=== PATIENT | female | born 1970 | race Caucasian/White ===

== ENCOUNTER 2020-03-27 06:03 | Outpatient (REF) | payer OTHER, SELFPAY ==
[2020-03-27 11:56] LABS: Alanine Aminotransferase 61 U/L (0-31); Anion Gap 15 (12-20); Aspartate Amino Transferase 36 U/L (5-31); Blood Urea Nitrogen 12 mg/dL (9-16); Calcium 9.3 mg/dL (8.4-10.2); Carbon Dioxide 26 mmol/L (22-29); Chloride 104 mmol/L (96-108); Cholesterol 157 mg/dL; Estimated Glomerular Filt Rate > 60; Glucose Fasting 96 mg/dL (60-99); HDL Cholesterol 64 mg/dL; LDL Cholesterol Calculated 80 mg/dl; Potassium 4.2 mmol/l (3.3-5.1); Sodium 141 mmol/L (135-145); Triglycerides 69 mg/dL
[2020-03-27 12:19] LABS: TSH reflex Free T4 < 0.01 mIU/mL (0.32-4.0)
[2020-03-27 13:06] LABS: Free T4 (Free Thyroxine) 2.41 ng/dL (0.71-1.85)
== END 2020-03-27 06:04 | disposition home or self-care (01) ==
LOC: HO.HMGCLDS 06:03
PROVIDERS: PCP Internal Medicine; Visit Provider Internal Medicine
DX: Z00.01 Encounter for general adult medical examination with abnormal findings (principal); I10 Essential (primary) hypertension
CPT/HCPCS: 80048; 80061; 84439; 84443; 84450; 84460

== ENCOUNTER → 2020-05-01 12:40 | Outpatient (BNVA) | payer OTHER, SELFPAY | PROVIDERS: PCP Internal Medicine; Visit Provider Physician Assistant | DX: Z76.89 Persons encountering health services in other specified circumstances (principal) ==

== ENCOUNTER → 2020-06-19 15:36 | Outpatient (BNVA) | payer OTHER, SELFPAY | PROVIDERS: PCP Internal Medicine; Referring Provider Internal Medicine; Visit Provider Internal Medicine ==

== ENCOUNTER 2020-06-19 16:46 | Emergency (ER) | payer OTHER, SELFPAY ==
[2020-06-19] VITALS (7 sets, daily range): BP systolic 113–190; BP diastolic 72–91; PULSE 90–116; RESP 16–20; TEMP 36.7; O2SAT 97–99; BMI 21.4
--- NOTE | 2020-06-19 17:12 | ED_ITS ---
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 Patient been having the symptoms for last 3 months had blood workup done at in 04/05 unable to follow up with specialist today she saw her gum scoring machine operator and at that time blood pressure was 200/120 pulse rate was 120 she was sent here for questionable thyroid storm Onset (ago): month(s) Related Data Home Medications Medication Instructions Recorded Confirmed calcium carbonate 500 mg calcium 500 mg PO BID 03/26/20 06/19/20 (1,250 mg) tablet cholecalciferol (vitamin D3) 25 25 mcg PO DAILY 03/26/20 06/19/20 mcg (1,000 unit) capsule multivitamin 1 tab PO DAILY 03/26/20 06/19/20 Previous Rx's Medication Instructions Recorded clobetasol 0.05 % topical ointment 1 applic TOPICAL DAILY 14 Days #60 03/26/20 g losartan 50 mg-hydrochlorothiazide 1 tab PO DAILY #90 tab 03/26/20 12.5 mg tablet propranolol 10 mg PO TID #90 tab 06/19/20 Allergies Allergy/AdvReac Type Severity Reaction Status Date / Time No Known Allergies Allergy Verified 06/19/20 16:24 Review of Systems Review of Systems: Constitutional : +Weight loss, No Fever, No Chills ENT/Mouth : No sore throat, No Rhinorrhea Eyes: No Eye Pain, No Swelling Cardiovascular : No Chest Pain, + palpitations Respiratory : No Cough, No Sputum, no shortness of breath Gastrointestinal : no Nausea, No Vomiting, No Diarrhea, No abdominal Pain, no black stools Genitourinary : No Dysuria, No Urinary Frequency Musculoskeletal : No joint pain, No Myalgias, No Joint Swelling Skin : No Skin Lesions, No rash Neuro : No Weakness, No Numbness, No Dizziness, No Headache Psych : No Anxiety/Panic, No Depression Heme/Lymph: No Bruising, No Lymphadenopathy Endocrine : No Polyuria, No Polydipsia All other systems reviewed and are negative PMFSH Past Medical History Medical History Annual visit for general adult medical examination with abnormal findings Colon cancer screening Elevated serum free T4 level Essential hypertension Granuloma annulare Hyperthyroidism Low thyroid stimulating hormone (TSH) level Surgical History No pertinent past surgical history Family History Family History Father Arthritis Thyroid disease Psoriasis Mother Viral cardiomyopathy Brother Coronary artery disease Paternal Grandmother Lung cancer Maternal Uncle Lung cancer Sister No problems noted. Paternal Uncle Lung cancer Son No problems noted. Daughter No problems noted. Social History Social History Alcohol intake: current Smoking Status: Former smoker Advance Directives: No Advance Directives Information Provided: No Physical Exam Vital Signs: Vital Signs: Last Vital Signs Temp 98.1 F 06/19/20 17:11 Pulse 94 06/19/20 20:35 Resp 20 06/19/20 20:35 BP 115/75 06/19/20 20:35 Pulse Ox 97 06/19/20 19:50 Body Mass Index 21.4 Const: General: cooperative, healthy appearing, comfortable and no acute distress Nutritional Appearance: thin Orientation/consciousness: patient oriented x3 HENMT: Head: Yes normocephalic Ears: hearing grossly normal bilaterally General nose exam: Normal external nose present Mouth: Normal oral and palatal mucosa present Eyes: General: appearance normal, both eyes and all related structures Neck: Neck: Yes normal visual inspection Thyroid: Thyroid normal Chest: Chest palpation & inspection: normal inspection of the chest Resp: Effort & Inspection: normal respiratory effort Auscultation: clear to auscultation bilaterally, no crackles, no rales and no rhonchi Cardio: Jugular venous distension: no JVD Palpation: normal PMI Rate: tachycardic Rhythm: regular rhythm Heart sounds: S1 normal heart sound present and S2 normal heart sound present Peripheral pulses: Peripheral pulses 2+ throughout GI: Inspection: Yes normal to inspection Palpation (GI): Soft to palpation, nontender, no guarding and No hepatosplenomegaly present Auscultation: normal bowel sounds : General: Yes no CVA tenderness Back/Spine/Pelvis: Back: no CVA tenderness Thoracic/Lumbar Spine: thoracic and lumbar spine normal to inspection Skin: General skin exam: no rashes or lesions noted Neuro: General: patient oriented x3 and no focal motor deficits Extrem: General: Yes normal to inspection, Yes no calf tenderness and No pedal edema Psych: Appearance: grossly normal Course Course Course Narrative: Patient feeling much better heart rate around 90. Will discharge patient home on propranolol 10 mg 3 times a day advised to follow-up with her gum scoring machine operator tomorrow Medical Decision Making Lab Data Result diagrams: 06/19/20 17:16 06/19/20 17:16 Labs: Lab Results 06/19/20 06/19/20 Range/Units 17:16 17:16 WBC 5.2 (4.8-10.8) X10*3/uL RBC 4.40 (4.20-5.50) X10*6/uL Hgb 13.3 (12.0-16.0) g/dl Hct 37.6 (37-47) % MCV 85.5 (80-98) fL MCH 30.2 (27.0-33.0) pg MCHC 35.4 H (31.0-35.0) g/dl RDW 13.7 (11.0-16.0) % Plt Count 246 (160-400) X10*3/uL MPV 9.6 (9.4-12.3) fL Immature Gran % (Auto) 0.2 (0.0-0.4) % Neut % (Auto) 51.7 (45-73) % Lymph % (Auto) 35.7 (20-40) % Ida % (Auto) 10.8 (2-11) % Eos % (Auto) 1.4 (0-4) % Baso % (Auto) 0.2 (0-2) % Lymph # (Auto) 1.9 (1.2-4.9) X10*3/uL Ida # (Auto) 0.6 (0.1-1.2) X10*3/uL Eos # (Auto) 0.1 (0.0-0.4) X10*3/uL Baso # (Auto) 0.0 (0.0-0.2) X10*3/uL Abs Immat Gran (auto) 0.01 (0.00-0.03) X10*3/uL Absolute Neuts (auto) 2.7 (2.0-8.3) X10*3/uL Absolute Nucleated RBC 0.000 (0.0-0.012) X10*3/uL Nucleated RBC % (auto) 0.0 (0.0-0.2) /100WBC Sodium 137 (135-145) mmol/L Potassium 3.5 (3.3-5.1) mmol/L Chloride 101 (96-108) mmol/L Carbon Dioxide 25 (22-29) mmol/L Anion Gap 15 (12-20) BUN 16 (9-16) mg/dL Creatinine 0.59 (0.5-1.4) mg/dL Estim Creat Clear Calc 113.7 Estimated GFR > 60 Random Glucose 107 (60-115) mg/dL Calcium 9.4 (8.4-10.2) mg/dL TSH < 0.01 L (0.32-4.0) uIU/mL Free T4 3.08 H (0.71-1.85) ng/dL Discharge Plan Discharge Clinical Impression: Hyperthyroidism Patient Disposition: Home, Self-Care Instructions: Hyperthyroidism (ED) Additional Instructions: Take medication as prescribed and follow-up with your gum scoring machine operator tomorrow Prescriptions: New propranolol 10 mg tablet 10 mg PO TID Qty: 90 RF: 0 No Action calcium carbonate [Calcium 500] 500 mg calcium (1,250 mg) tablet 500 mg PO BID RF: 0 cholecalciferol (vitamin D3) 25 mcg (1,000 unit) capsule 25 mcg PO DAILY RF: 0 multivitamin Tablet 1 tab PO DAILY RF: 0 losartan-hydrochlorothiazide 50-12.5 mg tablet 1 tab PO DAILY Qty: 90 RF: 3 clobetasol 0.05 % ointment 1 applic topical DAILY 14 Days Qty: 60 RF: 1 Interventions: ED Discharge Assessment Last Done: 06/19/20 21:00 Discharge Date/Time: 06/19/20 21:01
[2020-06-19] MEDS: Metoprolol Tartrate 5 MG/5 ML VIAL IVPUSH (17:24)
[2020-06-19 17:26] LABS: MANUAL DIFF FLAG NO
[2020-06-19 17:31] LABS: Basophils Percent Auto 0.2 % (0-2); Eosinophils Absolute Auto 0.1 X10*3/uL (0.0-0.4); Eosinophils Percent Auto 1.4 % (0-4); Hematocrit 37.6 % (37-47); Hemoglobin 13.3 g/dl (12.0-16.0); Imm Gran Abs Auto 0.01 X10*3/uL (0.00-0.03); Imm Gran Pct Auto 0.2 % (0.0-0.4); Lymphocytes Absolute Auto 1.9 X10*3/uL (1.2-4.9); Lymphocytes Percent Auto 35.7 % (20-40); Mean Corpuscular HGB Conc 35.4 g/dl (31.0-35.0); Mean Corpuscular Hemoglobin 30.2 pg (27.0-33.0); Mean Corpuscular Volume 85.5 fL (80-98); Mean Platelet Volume 9.6 fL (9.4-12.3); Monocytes Absolute Auto 0.6 X10*3/uL (0.1-1.2); Monocytes Percent Auto 10.8 % (2-11); Neutrophils Absolute Auto 2.7 X10*3/uL (2.0-8.3); Neutrophils Percent Auto 51.7 % (45-73); Platelet Count 246 X10*3/uL (160-400); Red Cell Distribution Width 13.7 % (11.0-16.0); White Blood Count 5.2 X10*3/uL (4.8-10.8)
--- NOTE | 2020-06-19 17:31 | PC.NURSE ---
IVP loprsser given over 5 minutes. HR and BP trending down. Pt denies dizziness.
[2020-06-19 17:54] LABS: Anion Gap 15 (12-20); Blood Urea Nitrogen 16 mg/dL (9-16); Calcium 9.4 mg/dL (8.4-10.2); Carbon Dioxide 25 mmol/L (22-29); Chloride 101 mmol/L (96-108); Creatinine Clr Calc Pharmacy 113.7; Estimated Glomerular Filt Rate > 60; Glucose Random 107 mg/dL (60-115); Potassium 3.5 mmol/L (3.3-5.1); Sodium 137 mmol/L (135-145)
[2020-06-19 18:16] LABS: Free T4 (Free Thyroxine) 3.08 ng/dL (0.71-1.85); Thyroid Stimulating Hormone < 0.01 uIU/mL (0.32-4.0)
[2020-06-19] MEDS: Propranolol HCL 10 MG TABLET PO (19:51)
[2020-06-20 06:27] LABS: Thyroglobulin 249.5 ng/mL; Thyroglobulin Antibodies <1 IU/mL (< or = 1)
== END 2020-06-19 21:01 | disposition home or self-care (01) ==
PROVIDERS: Emergency Provider Internal Medicine; PCP Internal Medicine
DX: E05.90 Thyrotoxicosis, unspecified without thyrotoxic crisis or storm (principal); R00.0 Tachycardia, unspecified; Z87.891 Personal history of nicotine dependence; Z79.899 Other long term (current) drug therapy
CPT/HCPCS: 36415; 80048; 83520; 84432; 84439; 84443; 85025; 86800; 96374; 99283; 99284

== ENCOUNTER 2020-06-24 06:05 | Outpatient (REF) | payer OTHER, SELFPAY ==
[2020-06-24 12:10] LABS: Free T4 (Free Thyroxine) 3.19 ng/dL (0.71-1.85); Thyroid Stimulating Hormone < 0.01 uIU/mL (0.32-4.0)
[2020-06-25 09:33] LABS: Thyroglobulin Antibodies <1 IU/mL (< or = 1); Thyroid Peroxidase Antibodies 1 IU/mL (<9)
[2020-06-25 15:33] LABS: Triiodothyronine T3 Total 593 ng/dL (76-181)
[2020-06-27 22:07] LABS: Thyrotropin Receptor Antibody 17.16 IU/L (<=2.00)
[2020-06-30 16:47] LABS: Thyroid Stimulating Immunoglob 458 % baseline (<140)
== END 2020-06-24 06:06 | disposition home or self-care (01) ==
LOC: HO.HMGCLDS 06:05
PROVIDERS: PCP Internal Medicine; Visit Provider Internal Medicine
DX: E05.90 Thyrotoxicosis, unspecified without thyrotoxic crisis or storm (principal)
CPT/HCPCS: 36415; 83520; 84439; 84443; 84445; 84480; 86376; 86800

== ENCOUNTER 2020-06-30 11:15 | Outpatient (REF) | payer OTHER, SELFPAY ==
--- NOTE | ~2020-06-30 | US_ITS ---
EXAMINATION: US THYROID CLINICAL INFORMATION: Thyrotoxicosis COMPARISON: None TECHNIQUE: Linear transducer grayscale and color Doppler examination with attention to the region of the thyroid. FINDINGS: SIZE: Measurements of the thyroid lobes and nodules are given in sagittal, anteroposterior and transverse dimensions respectively. Right Thyroid Lobe: 5 x 2.2 x 1.9 cm, volume 11 mL. Parenchyma: The gland echotexture is heterogeneous. Thyroid vascularity is increased. Left Thyroid Lobe: 5.8 x 2.6 x 2.5 cm, volume 20 mL. Parenchyma: The gland echotexture is heterogeneous. Thyroid vascularity is increased. Isthmus: 0.7 cm in maximum AP dimension. NODES: No lymphadenopathy is seen in the tissue surrounding the thyroid gland. US/US thyroid IMPRESSION: Enlarged heterogeneous hypervascular thyroid gland. Differential would include Graves' disease and acute thyroiditis. No focal nodule or adenopathy is seen.
== END 2020-06-30 11:16 | disposition home or self-care (01) ==
LOC: HO.HMGCX 11:15
PROVIDERS: PCP Internal Medicine; Visit Provider Internal Medicine
DX: E05.90 Thyrotoxicosis, unspecified without thyrotoxic crisis or storm (principal)
CPT/HCPCS: 76536

== ENCOUNTER → 2020-07-09 10:18 | Outpatient (REF) | payer OTHER, SELFPAY ==
--- NOTE | ~2020-07-09 | NM_ITS ---
EXAMINATION: THYROID UPTAKE AND SCAN CLINICAL INFORMATION: Thyrotoxicosis. COMPARISON: Thyroid ultrasound 06/30/2020. TECHNIQUE: Following the oral administration of 280 microcuries of I-123 sodium iodide, thyroid uptake was performed and expressed as a percentage of the administrated dose. Gamma scintillation camera images of the thyroid in the anterior and right and left anterior oblique views were obtained using a pinhole collimator following the administration of 10 mCi Tc-99m pertechnetate. FINDINGS: The uptake is 77.44% at 4 hours and 98.7% at 24 hours. The radioiodine uptake is normal. The radiopertechnetate thyroid scintigram demonstrates the thyroid gland to be diffusely prominent. It has normal contours and is in normal position. A pyramidal lobe is present. There is markedly increased trapping function in both lobes. This uptake is homogenous with no focal abnormalities. NM/NM thyroid w uptake IMPRESSION: 1. Markedly abnormal increased uptake of radioiodine. Normal uptake should be between 10% and 30% at 24 hours. 2. The thyroid gland is prominent with markedly increased trapping function in both lobes. A pyramidal lobe is present. No focal abnormalities are demonstrated. 3. These findings are most consistent with Graves' disease.
== END ==
LOC: HO.NUCMED 10:18
PROVIDERS: Visit Provider Internal Medicine
DX: E05.90 Thyrotoxicosis, unspecified without thyrotoxic crisis or storm (principal)
CPT/HCPCS: 78014; A9512; A9516

== ENCOUNTER → 2020-07-21 08:50 | Outpatient (BNVA) | payer OTHER, SELFPAY | PROVIDERS: PCP Internal Medicine; Visit Provider Internal Medicine ==

== ENCOUNTER 2020-07-22 06:14 | Outpatient (REF) | payer OTHER, SELFPAY ==
[2020-07-22 11:38] LABS: Alanine Aminotransferase 58 U/L (0-31); Albumin Level 4.4 g/dL (3.5-5.0); Alkaline Phosphatase 77 U/L (39-117); Aspartate Amino Transferase 38 U/L (5-31); Bilirubin Direct 0.4 mg/dL (0.0-0.5); Bilirubin Total 0.9 mg/dL (0.0-1.0); Total Protein 6.7 g/dL (6.5-8.0)
== END 2020-07-22 06:15 | disposition home or self-care (01) ==
LOC: HO.HMGCLDS 06:14
PROVIDERS: PCP Internal Medicine; Visit Provider Internal Medicine
DX: R74.01 Elevation of levels of liver transaminase levels (principal)
CPT/HCPCS: 36415; 80076

== ENCOUNTER 2020-07-26 08:05 | Outpatient (REF) | payer OTHER, SELFPAY ==
[2020-07-26 09:41] LABS: Alanine Aminotransferase 71 U/L (0-31); Albumin Level 4.4 g/dL (3.5-5.0); Alkaline Phosphatase 81 U/L (39-117); Aspartate Amino Transferase 54 U/L (5-31); Bilirubin Direct 0.5 mg/dL (0.0-0.5); Bilirubin Total 1.1 mg/dL (0.0-1.0); Total Protein 6.8 g/dL (6.5-8.0)
[2020-07-26 10:07] LABS: Free T4 (Free Thyroxine) 2.44 ng/dL (0.71-1.85)
[2020-07-27 09:47] LABS: Triiodothyronine T3 Total 449 ng/dL (76-181)
== END 2020-07-26 08:06 | disposition home or self-care (01) ==
LOC: HO.LAB 08:05
PROVIDERS: PCP Internal Medicine; Visit Provider Internal Medicine
DX: E05.00 Thyrotoxicosis with diffuse goiter without thyrotoxic crisis or storm (principal)
CPT/HCPCS: 36415; 80076; 84439; 84480

== ENCOUNTER 2020-07-28 09:27 | Emergency (ER) | payer OTHER, SELFPAY ==
[2020-07-28 09:34] VITALS: BP 208/103; PULSE 93; RESP 18; TEMP 36.8; O2SAT 99; BMI 21.2
--- NOTE | 2020-07-28 10:00 | ED_ITS ---
HPI - General Adult General Chief complaint: General Medical Stated complaint: HBP Time Seen by Provider: 07/28/20 09:59 Source: patient Mode of arrival: ambulatory Limitations: no limitations History of Present Illness HPI narrative: 49-year-old female brought in by her son to check on her high blood pressure, patient is recently diagnosed with Graves disease, patient is known history of hypertension been compliant with blood pressure medication, patient today checked her blood pressure at home which was above her normal value, patient overall feel headache and not feeling her normal self. No chest pain, no difficulty breathing. Related Data Home Medications Medication Instructions Recorded Confirmed calcium carbonate 500 mg calcium 500 mg PO BID 03/26/20 07/21/20 (1,250 mg) tablet cholecalciferol (vitamin D3) 25 25 mcg PO DAILY 03/26/20 07/21/20 mcg (1,000 unit) capsule multivitamin 1 tab PO DAILY 03/26/20 07/21/20 Previous Rx's Medication Instructions Recorded clobetasol 0.05 % topical ointment 1 applic TOPICAL DAILY 14 Days #60 03/26/20 g losartan 50 mg-hydrochlorothiazide 1 tab PO DAILY #90 tab 03/26/20 12.5 mg tablet propranolol 10 mg tablet 10 mg PO TID #90 tab 07/14/20 methimazole 10 mg tablet 20 mg PO TID 30 Days #180 tab 07/28/20 Allergies Allergy/AdvReac Type Severity Reaction Status Date / Time No Known Allergies Allergy Verified 07/21/20 10:16 Review of Systems Review of Systems: All other systems are reviewed and are negative Constitutional: Reports as per HPI and Reports no additional constitutional complaints Eyes: Reports as per HPI and Reports no additional eye complaints Reports system reviewed and no additional complaints, except as documented Cardiovascular: Reports as per HPI and Reports no additional cardiovascular complaints Respiratory: Reports as per HPI and Reports no additional respiratory complaints Gastrointestinal: Reports as per HPI and Reports no additional gastrointestinal complaints Genitourinary: Reports no additional female genitourinary complaints Musculoskeletal: Reports no additional musculoskeletal complaints Skin/Breast: Reports system reviewed and no additional complaints, except as do cu Psychiatric: Reports no additional psychiatric complaints Endocrine: Reports no additional endocrine complaints Hematologic/Lymphatic: Reports no additional hematologic/lymphatic complaints Allergic/Immunologic: Reports no additional allergic/immunologic complaints Reports system reviewed and no additional complaints, except as documented and Reports Abnormal speech present [facility] Past Medical History Medical History Annual visit for general adult medical examination with abnormal findings Colon cancer screening Elevated serum free T4 level Essential hypertension Granuloma annulare Graves disease Hyperthyroidism Low thyroid stimulating hormone (TSH) level Transaminitis Surgical History No pertinent past surgical history Family History Family History Father Arthritis Thyroid disease Psoriasis Mother Viral cardiomyopathy Brother Coronary artery disease Paternal Grandmother Lung cancer Maternal Uncle Lung cancer Sister No problems noted. Paternal Uncle Lung cancer Son No problems noted. Daughter No problems noted. Social History Social History Alcohol intake: never Smoking Status: Never smoker Use of substances other than those prescribed or required for medical reasons: No Advance Directives: No Advance Directives Information Provided: No Physical Exam Vital Signs: Vital Signs: Last Vital Signs Temp 98.7 F 07/28/20 11:55 Pulse 90 07/28/20 11:55 Resp 16 07/28/20 11:55 BP 146/86 H 07/28/20 11:55 Pulse Ox 98 07/28/20 11:55 Body Mass Index 21.2 Vital signs have been reviewed as appeared to be correct. Blood pressure on the high side. Heart rate normal. Respiration rate normal. Temperature normal. Oxygen saturation normal. Appearance: Alert. Oriented X3. No acute distress. Head: Normal external exam. Normocephalic. Atraumatic. No Smith signs noted. No raccoon eyes noted Eyes: PERRLA. EOMI. Conjunctiva and sclera normal. Eyelids normal. ENT: TM's Normal. Pharynx normal. Uvula midline. Moist mucous membranes. No trismus noted. No drooling noted. No muffled voice noted. Neck: Normal inspection. Neck supple. FROM. No adenopathy. Thyroid Normal. No meningeal signs. No neck mass noted. CVS: Normal heart rate and rhythm. Heart sound normal. No murmurs noted. Pulses normal throughout. Respiratory: No respiratory distress. Painless inspiration. Breath sounds normal. No wheezes/rales/rhonchi noted. Chest nontender. No accessory muscle usage noted or decreased air movement noted. Abdomen: Soft and nontender. Bowel sounds normal in all 4 quadrants. No distention noted. No organomegaly noted. No visible injury noted. Back: No CVA tenderness. Full range of motion noted. Skin: Skin warm and dry. Normal skin color. Normal skin turgor. No rashes/lesions/lacerations noted. Extremities: No lower extremity edema. Extremities exhibit normal range of motion. Extremities nontender. Neuro: Oriented X 3. No motor deficit. No sensory deficit. Reflexes normal. Course Course Course Narrative: Assessment and plan. 49-year-old female with Graves disease hyperthyroidism presented today after having high blood pressure and feeling very anxious, I spoke with patient's item processor Heriberto Segura who recommended to give the patient 1 dose of methimazole, on 1 dose of propanolol, patient also received 1 dose of Ativan in the emergency room, patient feels more relaxed, blood pressure under better control. Patient was instructed to follow-up with her item processor. Physical exam is not consistent with thyroid storm. Medical Decision Making Lab Data Lab results reviewed: Yes I reviewed the patient's lab results. Labs: Lab Results 07/28/20 Range/Units 10:30 TSH < 0.01 L (0.32-4.0) uIU/mL Free T4 2.36 H (0.71-1.85) ng/dL ECG Data Interpretation: Patient refused EKG. Discharge Plan Discharge Clinical Impression: Essential hypertension, Hyperthyroidism Patient Disposition: Home, Self-Care Instructions: Hyperthyroidism (ED), Hypertension (ED) Prescriptions: No Action propranolol 10 mg tablet 10 mg PO TID Qty: 90 RF: 0 methimazole 10 mg tablet 20 mg PO TID 30 Days Qty: 180 RF: 3 calcium carbonate [Calcium 500] 500 mg calcium (1,250 mg) tablet 500 mg PO BID RF: 0 cholecalciferol (vitamin D3) 25 mcg (1,000 unit) capsule 25 mcg PO DAILY RF: 0 multivitamin Tablet 1 tab PO DAILY RF: 0 losartan-hydrochlorothiazide 50-12.5 mg tablet 1 tab PO DAILY Qty: 90 RF: 3 clobetasol 0.05 % ointment 1 applic topical DAILY 14 Days Qty: 60 RF: 1 Referrals: Gladis Cho MD [Primary Care Provider] - 2 days Ohri Miranda Segura DO [Physician] - 2 days
[2020-07-28] MEDS: LORazepam 0.5 MG TABLET PO (10:04)
--- NOTE | 2020-07-28 10:20 | PC.NURSE ---
PT REFUSING EKG. AWARE
[2020-07-28] MEDS: methIMAzole 10 MG TABLET 20 MG PO (10:53)
[2020-07-28 10:54] VITALS: BP 143/70; PULSE 92
[2020-07-28] MEDS: Propranolol HCL 20 MG TABLET PO (10:54)
[2020-07-28 11:21] LABS: TSH reflex Free T4 < 0.01 uIU/mL (0.32-4.0)
[2020-07-28 11:55] VITALS: BP 146/86; PULSE 90; RESP 16; TEMP 37.1; O2SAT 98
[2020-07-28 11:56] LABS: Free T4 (Free Thyroxine) 2.36 ng/dL (0.71-1.85)
== END 2020-07-28 12:56 | disposition home or self-care (01) ==
PROVIDERS: Emergency Provider Emergency Medicine; PCP Internal Medicine
DX: I10 Essential (primary) hypertension (principal); E05.00 Thyrotoxicosis with diffuse goiter without thyrotoxic crisis or storm; F41.9 Anxiety disorder, unspecified
CPT/HCPCS: 36415; 84439; 84443; 99283; 99284

== ENCOUNTER 2020-08-01 06:02 | Outpatient (REF) | payer OTHER, SELFPAY ==
[2020-08-01 12:31] LABS: Alanine Aminotransferase 64 U/L (0-31); Albumin Level 4.2 g/dL (3.5-5.0); Alkaline Phosphatase 70 U/L (39-117); Aspartate Amino Transferase 42 U/L (5-31); Bilirubin Direct 0.4 mg/dL (0.0-0.5); Bilirubin Total 1.1 mg/dL (0.0-1.0); Total Protein 6.6 g/dL (6.5-8.0)
[2020-08-01 12:32] LABS: Free T4 (Free Thyroxine) 2.93 ng/dL (0.71-1.85)
[2020-08-02 08:17] LABS: Triiodothyronine T3 Total 321 ng/dL (76-181)
== END 2020-08-01 06:03 | disposition home or self-care (01) ==
LOC: HO.HMGCLDS 06:02
PROVIDERS: PCP Internal Medicine; Visit Provider Internal Medicine
DX: E05.00 Thyrotoxicosis with diffuse goiter without thyrotoxic crisis or storm (principal)
CPT/HCPCS: 36415; 80076; 84439; 84480

== ENCOUNTER 2020-08-12 06:10 | Outpatient (REF) | payer OTHER, SELFPAY ==
[2020-08-12 12:17] LABS: Free T4 (Free Thyroxine) 2.03 ng/dL (0.71-1.85)
[2020-08-12 12:31] LABS: Alanine Aminotransferase 63 U/L (0-31); Albumin Level 4.1 g/dL (3.5-5.0); Alkaline Phosphatase 76 U/L (39-117); Aspartate Amino Transferase 40 U/L (5-31); Bilirubin Direct 0.3 mg/dL (0.0-0.5); Bilirubin Total 0.9 mg/dL (0.0-1.0); Total Protein 6.6 g/dL (6.5-8.0)
[2020-08-13 03:07] LABS: Triiodothyronine T3 Total 260 ng/dL (76-181)
== END 2020-08-12 06:11 | disposition home or self-care (01) ==
LOC: HO.HMGCLDS 06:10
PROVIDERS: PCP Internal Medicine; Visit Provider Internal Medicine
DX: E05.00 Thyrotoxicosis with diffuse goiter without thyrotoxic crisis or storm (principal); R74.01 Elevation of levels of liver transaminase levels
CPT/HCPCS: 36415; 80076; 84439; 84480

== ENCOUNTER 2020-08-21 06:05 | Outpatient (REF) | payer OTHER, SELFPAY ==
[2020-08-21 11:56] LABS: Alanine Aminotransferase 54 U/L (0-31); Albumin Level 3.9 g/dL (3.5-5.0); Alkaline Phosphatase 77 U/L (39-117); Aspartate Amino Transferase 34 U/L (5-31); Bilirubin Direct 0.4 mg/dL (0.0-0.5); Bilirubin Total 0.8 mg/dL (0.0-1.0); Total Protein 6.3 g/dL (6.5-8.0)
[2020-08-21 12:18] LABS: Free T4 (Free Thyroxine) 1.87 ng/dL (0.71-1.85)
[2020-08-22 05:51] LABS: Triiodothyronine T3 Total 236 ng/dL (76-181)
== END 2020-08-21 06:06 | disposition home or self-care (01) ==
LOC: HO.HMGCLDS 06:05
PROVIDERS: Visit Provider Internal Medicine
DX: E05.00 Thyrotoxicosis with diffuse goiter without thyrotoxic crisis or storm (principal)
CPT/HCPCS: 36415; 80076; 84439; 84480

== ENCOUNTER → 2020-08-27 11:10 | Outpatient (BNVA) | payer OTHER, SELFPAY | PROVIDERS: PCP Internal Medicine; Visit Provider Internal Medicine ==

== ENCOUNTER 2020-08-28 06:20 | Outpatient (REF) | payer OTHER, SELFPAY ==
[2020-08-28 12:28] LABS: Free T4 (Free Thyroxine) 1.75 ng/dL (0.71-1.85)
[2020-08-29 04:22] LABS: Triiodothyronine T3 Total 195 ng/dL (76-181)
== END 2020-08-28 06:21 | disposition home or self-care (01) ==
LOC: HO.HMGCLDS 06:20
PROVIDERS: PCP Internal Medicine; Visit Provider Internal Medicine
DX: E05.00 Thyrotoxicosis with diffuse goiter without thyrotoxic crisis or storm (principal)
CPT/HCPCS: 36415; 84439; 84480

== ENCOUNTER 2020-09-15 06:07 | Outpatient (REF) | payer OTHER, SELFPAY ==
[2020-09-15 12:11] LABS: Free T4 (Free Thyroxine) 0.92 ng/dL (0.71-1.85)
[2020-09-16 08:47] LABS: Triiodothyronine T3 Total 103 ng/dL (76-181)
== END 2020-09-15 06:08 | disposition home or self-care (01) ==
LOC: HO.HMGCLDS 06:07
PROVIDERS: PCP Internal Medicine; Visit Provider Internal Medicine
DX: E05.00 Thyrotoxicosis with diffuse goiter without thyrotoxic crisis or storm (principal)
CPT/HCPCS: 36415; 84439; 84480

== ENCOUNTER 2020-09-22 06:04 | Outpatient (REF) | payer OTHER, SELFPAY ==
[2020-09-22 12:12] LABS: Free T4 (Free Thyroxine) 0.74 ng/dL (0.71-1.85)
[2020-09-23 07:42] LABS: Triiodothyronine T3 Total 67 ng/dL (76-181)
== END 2020-09-22 06:05 | disposition home or self-care (01) ==
LOC: HO.HMGCLDS 06:04
PROVIDERS: PCP Internal Medicine; Visit Provider Internal Medicine
DX: E05.90 Thyrotoxicosis, unspecified without thyrotoxic crisis or storm (principal)
CPT/HCPCS: 36415; 84439; 84480

== ENCOUNTER 2020-09-29 06:06 | Outpatient (REF) | payer OTHER, SELFPAY ==
[2020-09-29 12:17] LABS: Free T4 (Free Thyroxine) 0.64 ng/dL (0.71-1.85)
[2020-09-30 13:38] LABS: Triiodothyronine T3 Total 50 ng/dL (76-181)
== END 2020-09-29 06:07 | disposition home or self-care (01) ==
LOC: HO.HMGCLDS 06:06
PROVIDERS: PCP Internal Medicine; Visit Provider Internal Medicine
DX: E05.00 Thyrotoxicosis with diffuse goiter without thyrotoxic crisis or storm (principal); R74.01 Elevation of levels of liver transaminase levels; Z79.899 Other long term (current) drug therapy
CPT/HCPCS: 36415; 84439; 84480

== ENCOUNTER 2020-10-06 06:03 | Outpatient (REF) | payer OTHER, SELFPAY ==
[2020-10-06 12:04] LABS: Alanine Aminotransferase 39 U/L (0-31); Albumin Level 4.3 g/dL (3.5-5.0); Alkaline Phosphatase 74 U/L (39-117); Aspartate Amino Transferase 29 U/L (5-31); Bilirubin Direct 0.2 mg/dL (0.0-0.5); Bilirubin Total 0.7 mg/dL (0.0-1.0); Total Protein 6.8 g/dL (6.5-8.0)
[2020-10-06 12:11] LABS: Free T4 (Free Thyroxine) 0.54 ng/dL (0.71-1.85); Vitamin D 25-OH Total 46.1 ng/mL (>30)
[2020-10-07 08:27] LABS: Triiodothyronine T3 Total 38 ng/dL (76-181)
== END 2020-10-06 06:04 | disposition home or self-care (01) ==
LOC: HO.HMGCLDS 06:03
PROVIDERS: PCP Internal Medicine; Visit Provider Internal Medicine
DX: E05.00 Thyrotoxicosis with diffuse goiter without thyrotoxic crisis or storm (principal); R74.01 Elevation of levels of liver transaminase levels; E55.9 Vitamin D deficiency, unspecified
CPT/HCPCS: 36415; 80076; 82306; 82310; 84439; 84480

== ENCOUNTER 2020-10-14 06:03 | Outpatient (REF) | payer OTHER, SELFPAY ==
[2020-10-14 11:55] LABS: Albumin Level 4.4 g/dL (3.5-5.0)
[2020-10-14 12:27] LABS: Free T4 (Free Thyroxine) 0.49 ng/dL (0.71-1.85)
[2020-10-15 07:56] LABS: Triiodothyronine T3 Total 55 ng/dL (76-181)
== END 2020-10-14 06:04 | disposition home or self-care (01) ==
LOC: HO.HMGCLDS 06:03
PROVIDERS: PCP Internal Medicine; Visit Provider Internal Medicine
DX: E05.00 Thyrotoxicosis with diffuse goiter without thyrotoxic crisis or storm (principal)
CPT/HCPCS: 36415; 82040; 84439; 84480

== ENCOUNTER 2020-10-23 06:02 | Outpatient (REF) | payer OTHER, SELFPAY ==
[2020-10-23 12:15] LABS: Free T4 (Free Thyroxine) 0.74 ng/dL (0.71-1.85)
[2020-10-23 12:19] LABS: Alanine Aminotransferase 34 U/L (0-31); Albumin Level 4.5 g/dL (3.5-5.0); Alkaline Phosphatase 74 U/L (39-117); Aspartate Amino Transferase 35 U/L (5-31); Bilirubin Direct 0.4 mg/dL (0.0-0.5); Total Protein 7.1 g/dL (6.5-8.0)
[2020-10-24 10:12] LABS: Triiodothyronine T3 Total 89 ng/dL (76-181)
== END 2020-10-23 06:03 | disposition home or self-care (01) ==
LOC: HO.HMGCLDS 06:02
PROVIDERS: PCP Internal Medicine; Visit Provider Internal Medicine
DX: E05.00 Thyrotoxicosis with diffuse goiter without thyrotoxic crisis or storm (principal)
CPT/HCPCS: 36415; 80076; 84439; 84480

== ENCOUNTER 2020-11-10 06:33 | Outpatient (REF) | payer OTHER, SELFPAY ==
[2020-11-10 12:09] LABS: Free T4 (Free Thyroxine) 1.17 ng/dL (0.71-1.85)
[2020-11-11 20:36] LABS: Triiodothyronine T3 Total 128 ng/dL (76-181)
== END 2020-11-10 06:34 | disposition home or self-care (01) ==
LOC: HO.HMGCLDS 06:33
PROVIDERS: PCP Internal Medicine; Visit Provider Internal Medicine
DX: E05.90 Thyrotoxicosis, unspecified without thyrotoxic crisis or storm (principal)
CPT/HCPCS: 36415; 84439; 84480

== ENCOUNTER 2020-12-22 06:05 | Outpatient (REF) | payer OTHER, SELFPAY ==
[2020-12-22 11:56] LABS: Free T4 (Free Thyroxine) 1.64 ng/dL (0.71-1.85); Thyroid Stimulating Hormone < 0.01 uIU/mL (0.32-4.0)
[2020-12-23 19:41] LABS: Triiodothyronine T3 Total 160 ng/dL (76-181)
== END 2020-12-22 06:06 | disposition home or self-care (01) ==
LOC: HO.HMGCLDS 06:05
PROVIDERS: PCP Internal Medicine; Visit Provider Internal Medicine
DX: E05.90 Thyrotoxicosis, unspecified without thyrotoxic crisis or storm (principal)
CPT/HCPCS: 36415; 84439; 84443; 84480

== ENCOUNTER 2020-12-26 06:07 | Outpatient (REF) | payer OTHER, SELFPAY ==
[2020-12-26 12:12] LABS: Free T4 (Free Thyroxine) 1.43 ng/dL (0.71-1.85)
[2020-12-27 21:36] LABS: Triiodothyronine T3 Total 129 ng/dL (76-181)
== END 2020-12-26 06:08 | disposition home or self-care (01) ==
LOC: HO.HMGCLDS 06:07
PROVIDERS: PCP Internal Medicine; Visit Provider Internal Medicine
DX: E05.00 Thyrotoxicosis with diffuse goiter without thyrotoxic crisis or storm (principal)
CPT/HCPCS: 36415; 84439; 84480

== ENCOUNTER → 2021-01-28 11:10 | Outpatient (BNVA) | payer OTHER, SELFPAY | PROVIDERS: PCP Internal Medicine; Visit Provider Internal Medicine ==

== ENCOUNTER 2021-02-18 06:07 | Outpatient (REF) | payer OTHER, SELFPAY ==
[2021-02-18 11:44] LABS: Albumin Level 4.6 g/dL (3.5-5.0); Calcium 9.6 mg/dL (8.4-10.2)
[2021-02-18 12:14] LABS: Free T4 (Free Thyroxine) 0.78 ng/dL (0.71-1.85); Thyroid Stimulating Hormone 1.06 uIU/mL (0.32-4.0)
[2021-02-20 05:47] LABS: Thyroglobulin 0.9 ng/mL; Thyroglobulin Antibodies <1 IU/mL (< or = 1)
[2021-02-20 12:50] LABS: Calcium (PTHI) 9.9 mg/dL (8.6-10.4); PTHI 29 pg/mL (14-64)
== END 2021-02-18 06:08 | disposition home or self-care (01) ==
LOC: HO.HMGCLDS 06:07
PROVIDERS: PCP Internal Medicine; Visit Provider Internal Medicine
DX: C73 Malignant neoplasm of thyroid gland (principal)
CPT/HCPCS: 36415; 82040; 82310; 83970; 84432; 84439; 84443; 86800

== ENCOUNTER → 2021-03-04 08:51 | Outpatient (BNVA) | payer OTHER, SELFPAY | PROVIDERS: PCP Internal Medicine; Visit Provider Internal Medicine ==

== ENCOUNTER 2021-03-27 11:23 | Outpatient (REF) | payer OTHER, SELFPAY ==
[2021-03-27 14:26] LABS: Alanine Aminotransferase 23 U/L (0-31); Anion Gap 16 (12-20); Aspartate Amino Transferase 24 U/L (5-31); Blood Urea Nitrogen 10 mg/dL (9-16); Calcium 9.4 mg/dL (8.4-10.2); Carbon Dioxide 26 mmol/L (22-29); Chloride 101 mmol/L (96-108); Cholesterol 224 mg/dL; Estimated Glomerular Filt Rate > 60; Glucose Fasting 99 mg/dL (60-99); HDL Cholesterol 88 mg/dL; LDL Cholesterol Calculated 117 mg/dl; Potassium 3.7 mmol/L (3.3-5.1); Sodium 139 mmol/L (135-145); Triglycerides 97 mg/dL
[2021-03-31 15:01] LABS: HPV mRNA E6/E7 rflx Not Detected (Not Detected)
== END 2021-03-27 11:24 | disposition home or self-care (01) ==
LOC: HO.HMGCLDS 11:23
PROVIDERS: PCP Internal Medicine; Visit Provider Internal Medicine
DX: Z00.01 Encounter for general adult medical examination with abnormal findings (principal); I10 Essential (primary) hypertension
CPT/HCPCS: 36415; 80048; 80061; 84450; 84460; 87624; 88142

== ENCOUNTER 2021-06-19 15:19 | Outpatient (REF) | payer OTHER, SELFPAY ==
--- NOTE | ~2021-06-19 | US_ITS ---
EXAMINATION: US SOFT TISSUE NECK CLINICAL INFORMATION: Check thyroid residual. Cervical lymphadenopathy. COMPARISON: Thyroid ultrasound 06/30/2020 TECHNIQUE: Ultrasound of the neck soft tissues is performed with high- frequency anderson-scale imaging and color Doppler. FINDINGS: Patient is status post total thyroidectomy. There is some ill-defined hyperechoic tissue in the left thyroidectomy bed which measures approximately 8 mm in maximum transverse dimension although is not well-defined in long axis. There is no focal tissue present within the right thyroidectomy bed. A few lymph nodes are present within the right and left neck which are all normal in size and relatively normal in appearance. Largest lymph node of the right neck is a level 4 node which measures 5 mm in maximum transverse dimension while the largest lymph node of the left neck is a 1B node which measures 1.2 cm in maximum transverse dimension. US/US soft tiss head and/or neck IMPRESSION: 1. Possible minimal residual thyroid tissue within the left thyroidectomy bed. This may also represent postsurgical changes. Attention on follow-up imaging recommended. 2. If clinically indicated further evaluation of the neck soft tissues and nodes may be performed with CT soft tissue neck with intravenous contrast.
== END 2021-06-19 15:20 | disposition home or self-care (01) ==
LOC: HO.HMGCX 15:19
PROVIDERS: PCP Internal Medicine; Visit Provider Internal Medicine
DX: Z85.850 Personal history of malignant neoplasm of thyroid (principal)
CPT/HCPCS: 76536

== ENCOUNTER 2021-07-08 06:07 | Outpatient (REF) | payer OTHER, SELFPAY ==
[2021-07-08 11:54] LABS: Free T4 (Free Thyroxine) 0.77 ng/dL (0.71-1.85); Thyroid Stimulating Hormone 11.82 uIU/mL (0.32-4.0)
[2021-07-09 10:06] LABS: Thyroglobulin 1.3 ng/mL; Thyroglobulin Antibodies <1 IU/mL (< or = 1)
== END 2021-07-08 06:08 | disposition home or self-care (01) ==
LOC: HO.HMGCLDS 06:07
PROVIDERS: Visit Provider Internal Medicine
DX: Z85.850 Personal history of malignant neoplasm of thyroid (principal)
CPT/HCPCS: 36415; 84432; 84439; 84443; 86800

== ENCOUNTER → 2021-07-09 12:53 | Outpatient (BNVA) | payer OTHER, SELFPAY | PROVIDERS: PCP Internal Medicine; Visit Provider Internal Medicine ==

== ENCOUNTER 2021-10-26 06:13 | Outpatient (REF) | payer OTHER, SELFPAY ==
[2021-10-26 13:35] LABS: Free T4 (Free Thyroxine) 0.86 ng/dL (0.71-1.85); Thyroid Stimulating Hormone 14.52 uIU/mL (0.32-4.0)
[2021-10-27 13:20] LABS: Thyroglobulin 1.3 ng/mL; Thyroglobulin Antibodies <1 IU/mL (< or = 1)
== END 2021-10-26 06:14 | disposition home or self-care (01) ==
LOC: HO.HMGCLDS 06:13
PROVIDERS: PCP Internal Medicine; Visit Provider Internal Medicine
DX: E89.0 Postprocedural hypothyroidism (principal)
CPT/HCPCS: 36415; 84432; 84439; 84443; 86800

== ENCOUNTER 2021-12-08 06:02 | Outpatient (REF) | payer OTHER, SELFPAY ==
[2021-12-08 12:17] LABS: Free T4 (Free Thyroxine) 1.09 ng/dL (0.71-1.85); Thyroid Stimulating Hormone 8.31 uIU/mL (0.32-4.0)
== END 2021-12-08 06:03 | disposition home or self-care (01) ==
LOC: HO.HMGCLDS 06:02
PROVIDERS: Visit Provider Internal Medicine
DX: E89.0 Postprocedural hypothyroidism (principal)
CPT/HCPCS: 36415; 84439; 84443

== ENCOUNTER 2021-12-31 14:05 | Outpatient (REF) | payer OTHER, SELFPAY ==
--- NOTE | ~2021-12-31 | US_ITS ---
EXAMINATION: US SOFT TISSUE OF THE NECK CLINICAL INFORMATION: Personal history of malignant neoplasm of thyroid. COMPARISON: Ultrasound soft tissue neck 06/19/2021. US thyroid 06/30/2020. TECHNIQUE: Linear transducer grayscale and color Doppler examination of the thyroid bed and surrounding soft tissue. FINDINGS: There is again question of residual thyroid tissue seen on the left. There are bilateral small cervical lymph nodes. Lymph nodes appear decreased compared to June 2021 exam. There is a right level 5A lymph node that measures 0.9 0.3 x 0.7 cm in size and demonstrates normal echogenicity and flow. There is a right level 2 lymph node that measures 0.8 x 0.3 x 0.6 cm. This is normal in size and demonstrates normal echogenicity and flow. These are both newly appreciated from June 2021 exam. There is a left level 5A lymph node. This is normal in size and measures 6 x 4 x 3 mm. This demonstrates normal echogenicity and flow in unchanged from previous exam. The remainder of the left cervical lymph nodes seen on prior exam are no longer appreciated. US/US soft tiss head and/or neck IMPRESSION: Post thyroidectomy. There may be residual thyroid tissue on the left that appears unchanged. Small bilateral normal-appearing cervical lymph nodes. Left cervical lymph nodes appear decreased from June 2021 exam.
[2021-12-31 17:44] LABS: Free T4 (Free Thyroxine) 1.21 ng/dL (0.71-1.85); Thyroid Stimulating Hormone 8.79 uIU/mL (0.32-4.0)
[2022-01-04 17:02] LABS: Thyroglobulin 0.9 ng/mL
[2022-01-04 21:11] LABS: Thyroglobulin Antibodies <1 IU/mL (< or = 1)
== END 2021-12-31 14:06 | disposition home or self-care (01) ==
LOC: HO.HMGCX 14:05
PROVIDERS: PCP Internal Medicine; Visit Provider Internal Medicine
DX: Z85.850 Personal history of malignant neoplasm of thyroid (principal)
CPT/HCPCS: 36415; 76536; 84432; 84439; 84443; 86800

== ENCOUNTER 2022-02-18 06:09 | Outpatient (REF) | payer OTHER, SELFPAY ==
[2022-02-18 11:46] LABS: Anion Gap 15 (12-20); Blood Urea Nitrogen 11 mg/dL (9-16); Calcium 9.1 mg/dL (8.4-10.2); Carbon Dioxide 24 mmol/L (22-29); Chloride 103 mmol/L (96-108); Estimated Glomerular Filt Rate > 60; Glucose Fasting 107 mg/dL (60-99); Potassium 3.8 mmol/L (3.3-5.1); Sodium 138 mmol/L (135-145)
[2022-02-18 11:49] LABS: Thyroid Stimulating Hormone 5.11 uIU/mL (0.32-4.0)
[2022-02-18 11:57] LABS: Free T4 (Free Thyroxine) 1.08 ng/dL (0.71-1.85)
== END 2022-02-18 06:10 | disposition home or self-care (01) ==
LOC: HO.HMGCLDS 06:09
PROVIDERS: Absent Provider Internal Medicine; PCP Internal Medicine; Visit Provider Internal Medicine
DX: I10 Essential (primary) hypertension (principal); E89.0 Postprocedural hypothyroidism
CPT/HCPCS: 36415; 80048; 84439; 84443

== ENCOUNTER 2022-04-06 06:06 | Outpatient (REF) | payer OTHER, SELFPAY ==
[2022-04-06 13:00] LABS: Free T4 (Free Thyroxine) 1.23 ng/dL (0.71-1.85); Thyroid Stimulating Hormone 3.01 uIU/mL (0.32-4.0); Vitamin D 25-OH Total 46.1 ng/mL (>30)
[2022-04-11 06:06] LABS: Thyroglobulin Antibody <1 IU/mL (<=1); Thyroglobulin Level 0.8 ng/mL
== END 2022-04-06 06:07 | disposition home or self-care (01) ==
LOC: HO.HMGCLDS 06:06
PROVIDERS: PCP Internal Medicine; Visit Provider Internal Medicine
DX: E89.0 Postprocedural hypothyroidism (principal); E55.9 Vitamin D deficiency, unspecified
CPT/HCPCS: 36415; 82306; 84432; 84439; 84443; 86800

== ENCOUNTER 2022-05-24 06:08 | Outpatient (REF) | payer OTHER, SELFPAY ==
[2022-05-24 12:33] LABS: Free T4 (Free Thyroxine) 1.12 ng/dL (0.71-1.85); Thyroid Stimulating Hormone 1.71 uIU/mL (0.32-4.0)
[2022-05-28 03:54] LABS: Thyroglobulin Antibody <1 IU/mL (<=1)
[2022-05-30 17:23] LABS: Thyroglobulin Level 0.7 ng/mL
== END 2022-05-24 06:09 | disposition home or self-care (01) ==
LOC: HO.HMGCLDS 06:08
PROVIDERS: PCP Internal Medicine; Visit Provider Internal Medicine
DX: Z85.850 Personal history of malignant neoplasm of thyroid (principal)
CPT/HCPCS: 36415; 84432; 84439; 84443; 86800

== ENCOUNTER 2022-07-16 08:54 | Outpatient (REF) | payer OTHER, SELFPAY ==
[2022-07-16 11:52] LABS: Alanine Aminotransferase 17 U/L (0-31); Anion Gap 14 (12-20); Aspartate Amino Transferase 17 U/L (5-31); Blood Urea Nitrogen 16 mg/dL (9-16); Calcium 9.7 mg/dL (8.4-10.2); Carbon Dioxide 27 mmol/L (22-29); Chloride 103 mmol/L (96-108); Cholesterol 238 mg/dL; Estimated Glomerular Filt Rate > 60; Glucose Fasting 109 mg/dL (60-99); HDL Cholesterol 86 mg/dL; LDL Cholesterol Calculated 143 mg/dl; Sodium 140 mmol/L (135-145); Triglycerides 46 mg/dL
[2022-07-16 12:10] LABS: Vitamin D 25-OH Total 57.2 ng/mL (>30)
== END 2022-07-16 08:55 | disposition home or self-care (01) ==
LOC: HO.HMGCLDS 08:54
PROVIDERS: Absent Provider Internal Medicine; PCP Internal Medicine; Visit Provider Internal Medicine
DX: Z00.01 Encounter for general adult medical examination with abnormal findings (principal); E55.9 Vitamin D deficiency, unspecified; R74.01 Elevation of levels of liver transaminase levels; I10 Essential (primary) hypertension
CPT/HCPCS: 36415; 80048; 80061; 82306; 84450; 84460

== ENCOUNTER 2022-08-31 15:54 | Outpatient (REF) | payer OTHER, SELFPAY ==
[2022-08-31 18:59] LABS: Free T4 (Free Thyroxine) 1.19 ng/dL (0.71-1.85); Thyroid Stimulating Hormone 1.43 uIU/mL (0.32-4.0)
[2022-09-04 05:38] LABS: Thyroglobulin Antibody <1 IU/mL (<=1); Thyroglobulin Level 0.9 ng/mL
== END 2022-08-31 15:55 | disposition home or self-care (01) ==
LOC: HO.LAB 15:54
PROVIDERS: PCP Internal Medicine; Visit Provider Internal Medicine
DX: Z85.850 Personal history of malignant neoplasm of thyroid (principal)
CPT/HCPCS: 36415; 84432; 84439; 84443; 86800

== ENCOUNTER → 2022-09-06 07:30 | Outpatient (BNVA) | payer OTHER, SELFPAY | PROVIDERS: PCP Internal Medicine; Visit Provider Internal Medicine | DX: Z13.89 Encounter for screening for other disorder (principal) ==

== ENCOUNTER 2023-02-22 15:17 | Outpatient (REF) | payer OTHER, SELFPAY ==
--- NOTE | ~2023-02-22 | US_ITS ---
EXAMINATION: US SOFT TISSUE NECK CLINICAL INFORMATION: Personal history of malignant neoplasm of thyroid. COMPARISON: Ultrasound soft tissue head/neck dated 12/31/2021 and 06/19/2021. TECHNIQUE: Ultrasound of the neck soft tissues is performed with high- frequency anderson-scale imaging and color Doppler. FINDINGS: THYROID BED: Prior thyroidectomy. Within the left thyroid bed, a heterogeneous attenuation soft tissue density seen measuring 8 x 5 x 1.1 cm. This is similar to prior. RIGHT NECK SOFT TISSUES: Scattered architecturally normal nodes are present. The nodes show normal fatty hilus, normal cortical thickness, and no cystic change or calcification. No abnormal color flow. The largest nodes are as follows: Level 2: 2.3 x 0.6 x 1.3 cm. Prior: Not seen. Normal miya architecture. Level 2: 1.4 x 0.4 x 0.9 cm. Prior: 0.8 x 0.3 x 0.6 cm Normal miya architecture. LEFT NECK SOFT TISSUES: Scattered architecturally normal nodes are present. The nodes show normal fatty hilus, normal cortical thickness, and no cystic change or calcification. No abnormal color flow. The largest nodes are as follows: Level 1A: 0.6 x 0.3 x 0.6 cm. Normal miya architecture. Level 2: 1.9 x 0.5 x 2.6 cm. Prior: Not seen. Normal miya architecture. Level 2: 0.9 x 0.4 x 1.2 cm. Prior: Not seen. Normal miya architecture. Level 3: 1.4 x 0.3 x 0.7 cm. Prior: Not seen. Normal miya architecture. Level 4: 0.8 x 0.3 x 0.6 cm. Prior: 0.6 x 0.4 x 0.3 cm Normal miya architecture. Level 4: 0.7 x 0.3 x 0.4 cm. Prior: Not seen. Normal miya architecture. Level 6: 0.9 x 0.4 x 0.4 cm. Prior: Not seen. This shows an absent hilum and irregular margins. US/US soft tiss head and/or neck IMPRESSION: 1. There is again the question of residual thyroid tissue within the left thyroid bed, with dimensions as detailed. 2. Multiple bilateral cervical lymph nodes are seen, as detailed. One of these towards the left thyroid bed (level 6) shows poor corticomedullary differentiation and some marginal irregularity. 2. If clinically indicated further evaluation of the neck soft tissues and nodes may be performed with CT soft tissue neck with intravenous contrast.
== END 2023-02-22 15:18 | disposition home or self-care (01) ==
LOC: HO.HMGCX 15:17
PROVIDERS: PCP Internal Medicine; Visit Provider Internal Medicine
DX: Z85.850 Personal history of malignant neoplasm of thyroid (principal)
CPT/HCPCS: 76536

== ENCOUNTER 2023-03-29 06:03 | Outpatient (REF) | payer OTHER, SELFPAY ==
[2023-03-29 12:28] LABS: Free T4 (Free Thyroxine) 1.15 ng/dL (0.71-1.85); Thyroid Stimulating Hormone 0.47 uIU/mL (0.32-4.0)
[2023-04-05 07:29] LABS: Thyroglobulin Antibody <1 IU/mL (<=1); Thyroglobulin Level 1.1 ng/mL
== END 2023-03-29 06:04 | disposition home or self-care (01) ==
LOC: HO.HMGCLDS 06:03
PROVIDERS: Internal Medicine; PCP Internal Medicine; Visit Provider Internal Medicine Endocrinology, Diabetes & Metabolism
DX: E89.0 Postprocedural hypothyroidism (principal); Z85.850 Personal history of malignant neoplasm of thyroid
CPT/HCPCS: 36415; 84432; 84439; 84443; 86800

== ENCOUNTER 2023-05-12 08:53 | Outpatient (AMB) | payer OTHER, SELFPAY ==
[2023-05-12 10:10] VITALS: BP 150/80; PULSE 69; TEMP 36.2; O2SAT 98; BMI 24.2
--- NOTE | 2023-05-12 10:10 | AM.OFFWIN_ITS ---
Intake Vital Signs 05/12/23 10:10 Height 5 ft 8 in Weight 159 lb BMI 24.2 BP 150/80 H Blood Pressure Location Lt brachial Pulse 69 Pulse Source Pulse Oximeter Temp 97.1 F Temp Source Temporal Artery Scan Pulse Oximetry (%) 98 Oxygen Delivery Method Room Air Intake Visit Reasons: ETS/sinus/ear pressure ([phone]) Intake Note: pt is here today for sinus ear pressure started 3 weeks ago Patient Tobacco Use Status: Former Tobacco user Allergies No Known Allergies Allergy (Verified 05/12/23 10:16) Do you need a note to return to daycare/school/sports/work: No HPI HPI Comments History of Present Illness Details She presents to office with ear complaint She has had cold symptoms x 3 weeks She said all symptoms gone except for fullness L ear and sinus pressure +teeth hurt She denies fevers or chills No cough, CP or SOB PFSH Medical History Colon cancer screening Essential hypertension Granuloma annulare Graves disease History of thyroid cancer Hypothyroidism Thyroid cancer Vitamin D deficiency Surgical History Hx of total thyroidectomy Family History Father Arthritis Thyroid disease Psoriasis Mental health disorder Mother Viral cardiomyopathy Brother Coronary artery disease Paternal Grandmother Lung cancer Maternal Uncle Lung cancer Sister No problems noted. Paternal Uncle Lung cancer Son No problems noted. Daughter No problems noted. Social History Household Members: Spouse Housing: House Alcohol intake: current Alcohol intake frequency: holidays/special occasions only Patient Tobacco Use Status: Former Tobacco user Years Smoked: 15 yrs e-Cigarette/Vaping Use: Never Used Current occupational status: employed Cognitive needs: No Hearing needs: No Vision needs: Yes Review of Systems Const Denies body aches, Denies chills, Denies fever(s) and Reports headache(s) (frontal sinus) Eyes Denies blurry vision ENT Denies dizziness, Reports otalgia (L ear fullness), Reports headache(s) (frontal sinus), Reports nasal congestion, Reports sinus pain, Reports sinus pressure and Denies sore throat Card Denies chest pain and Denies dyspnea Resp Denies cough and Denies dyspnea Musc Denies myalgias Neuro Denies dizziness and Reports headache(s) (frontal sinus) Physical Exam Vital Signs: Last Vital Signs Temp 97.1 F 05/12/23 10:10 Pulse 69 05/12/23 10:10 BP 150/80 H 05/12/23 10:10 Pulse Ox 98 05/12/23 10:10 Oxygen Delivery Method Room Air 05/12/23 10:10 BMI result Body Mass Index 24.2 General: Non-toxic, NAD. Speaking full sentences. Skin: Warm dry throughout Eye: EOMI HENT: Airway patent. Uvula midline. No pharyngeal erythema or edema. 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 Bilateral canals clear. TM non-erythematous, non-bulging. + fluid behind L TM. No TM perforation or hemotympanum noted. + frontal sinus tenderness to palpation Lymph: no lymphadenopathy Respiratory: CTA bilaterally. No wheezes, rales or rhonchi Cardiac: RRR. No murmur MSK: Full ROM extremities. Neurology: A/O. Gait without abnormality Psych: Good mood and affect Assessment & Plan Assessment & Plan (1) Sinusitis: Code(s): J32.9 - Chronic sinusitis, unspecified Qualifiers: Sinusitis location: frontal Chronicity: acute Recurrence: non- recurrent Qualified Code(s): J01.10 - Acute frontal sinusitis, unspecified Plan: Patient seen and evaluated. + HTN but she said thi sis typical in medical office and denies issue Augmentin for sinuses x 3 weeks Declined nasal spray Fluids/rest Patient gave verbal understanding and had no additional questions or concerns at time of discharge All questions answered Medications: New amoxicillin-pot clavulanate 875-125 mg 1 tab PO BID 14 tabs 0RF J32.9 - Chronic sinusitis, unspecified Coding Level of Care Code Est Pt Level 3 (07535) Diagnoses Acute non-recurrent frontal sinusitis J01.10 Sinusitis location: frontal Chronicity: acute Recurrence: non-recurrent
== END 2023-05-12 11:13 | disposition home or self-care (01) ==
PROVIDERS: PCP Internal Medicine; Visit Provider Physician Assistant
DX: J01.10 Acute frontal sinusitis, unspecified (principal)
CPT/HCPCS: 99213

== ENCOUNTER 2023-06-07 07:57 | Outpatient (AMB) | payer OTHER, SELFPAY ==
[2023-06-07 08:00] VITALS: BP 154/84; PULSE 86; BMI 24.2
--- NOTE | 2023-06-07 08:00 | A.OFFVIS_ITS ---
Intake Vital Signs 06/07/23 08:00 Height 5 ft 8 in Weight 159 lb 6.307 oz BMI 24.2 BP 154/84 H Blood Pressure Location Lt brachial Position Sitting Pulse 86 Pulse Source Pulse Oximeter Intake Visit Reasons: F/U Thyroid Cancer-confirmed Intake Note: Patient presents today for Thyroid Cancer follow up, last seen by Dr. Louis on 09/06/2022. 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 The patient last saw Dr. Louis on 09/06/2022 She was initially diagnosed with hyperthyroidism in March 2020 with labs revealing a completely suppressed TSH and elevated FT4. She was referred to Endocrinology. During our initial visit she was found to have malignant hypertension with BP >200/100. She was sent emergently to the ED for treatment. She was thought to be impending thyroid storm. She was started on Propranolol 10 mg PO TID with good control of her BP and symptoms of hyperthyroidism. She was asked to complete her workup for hyperthyroidism. She was found to have a suppressed TSH with an elevated FT4 and TT3. Her TSI and TRAB antibodies were positive. She was started on Methimazole and this was titrated upward to 40 mg PO TID. She was continued on this since Jun 2020 until her surgical thyroidectomy 01/06/2021. She underwent a total thyroidectomy at that time and was started on levothyroxine which has been titrated upwards to brand name Synthroid 175 mcg PO daily, which she reports good compliance with. She reports taking this correctly. TSH is at goal. 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 This was encapsulated, with no involved margins. There was no lymphatic, vascular or perineural invasion present. This was [id number]. She did not receive I131 remnant ablation. She underwent an US of the head and nec, 06/19/2021 which reported a 8 mm focus of hyperechoic tissue within the left thyroidectomy bed, however this was not apparent on review of images. Repeat imaging 12/2021 again officially read as question residual thyroid tissue in the left thyroid bed, but review of images reveals what appears to be a normal appearing lmph node. Supressed TG levels remain <1. US Head and Neck: 12/31/2021 FINDINGS: There is again question of residual thyroid tissue seen on the left. There are bilateral small cervical lymph nodes. Lymph nodes appear decreased compared to June 2021 exam. There is a right level 5A lymph node that measures 0.9 0.3 x 0.7 cm in size and demonstrates normal echogenicity and flow. There is a right level 2 lymph node that measures 0.8 x 0.3 x 0.6 cm. This is normal in size and demonstrates normal echogenicity and flow. These are both newly appreciated from June 2021 exam. There is a left level 5A lymph node. This is normal in size and measures 6 x 4 x 3 mm. This demonstrates normal echogenicity and flow in unchanged from previous exam. The remainder of the left cervical lymph nodes seen on prior exam are no longer appreciated. Labs: Laboratory Tests 08/31/22 08/31/22 16:16 16:16 TSH 1.43 Free T4 1.19 Thyroglobulin 0.9 H Thyroglobulin Anti body <1 No sx of hypothyroidism or hyperthyroidism PFSH Medical History Colon cancer screening Essential hypertension Granuloma annulare Graves disease History of thyroid cancer Hypothyroidism Thyroid cancer Vitamin D deficiency Surgical History Hx of total thyroidectomy Family History Father Arthritis Thyroid disease Psoriasis Mental health disorder Mother Viral cardiomyopathy Brother Coronary artery disease Paternal Grandmother Lung cancer Maternal Uncle Lung cancer Sister No problems noted. Paternal Uncle Lung cancer Son No problems noted. Daughter No problems noted. Social History Household Members: Spouse Housing: House Alcohol intake: current Alcohol intake frequency: holidays/special occasions only Patient Tobacco Use Status: Former Tobacco user Years Smoked: 15 yrs e-Cigarette/Vaping Use: Never Used Current occupational status: employed Cognitive needs: No Hearing needs: No Vision needs: Yes Physical Exam Vital Signs: Last Vital Signs Pulse 86 06/07/23 08:00 BP 154/84 H 06/07/23 08:00 BMI result Body Mass Index 24.2 Const Other: Healed scar status post thyroidectomy. There is no palpable cervical adenopathy Assessment & Plan Assessment & Plan (1) History of thyroid cancer: Code(s): Z85.850 - Personal history of malignant neoplasm of thyroid Plan: This is a 52-year-old white female status post total thyroidectomy with incidental finding of 3 mm micro papillary cancer. 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 This was encapsulated, with no involved margins. There was no lymphatic, vascular or perineural invasion present. This was [id number]. Thyroglobulin been stable with the use the appearance of an abnormal lymph node on recent ultrasound.. The patient is clinically and biochemically euthyroid. Plan is to continue the current management. We will talk to the patient about options regarding the abnormal lymph node including sending the patient for 2nd opinion to Dr. Varsha Gill at [facility] to see if the lymph node needs to be biopsied. She agrees with this plan and will see Dr. Gill Orders: Referrals Endocrinology Referral Z85.850 - Personal history of malignant neoplasm of thyroid Coding Level of Care Code Est Pt Level 3 (35378) Diagnoses History of thyroid cancer Z85.850
== END 2023-06-07 08:32 | disposition home or self-care (01) ==
PROVIDERS: PCP Internal Medicine; Visit Provider Internal Medicine Endocrinology, Diabetes & Metabolism
DX: Z85.850 Personal history of malignant neoplasm of thyroid (principal)
CPT/HCPCS: 99213

== ENCOUNTER → 2023-06-07 07:57 | Outpatient (BNVA) | payer OTHER, SELFPAY | PROVIDERS: Visit Provider Internal Medicine Endocrinology, Diabetes & Metabolism ==

== ENCOUNTER 2023-07-26 08:01 | Outpatient (AMB) | payer OTHER, SELFPAY ==
[2023-07-26 08:08] VITALS: BP 138/70; PULSE 66; O2SAT 99; BMI 23.4
--- NOTE | 2023-07-26 08:08 | MHC.PC.OV ---
Vital Signs 07/26/23 08:08 Height 5 ft 8 in Weight 154 lb BMI 23.4 BP 138/70 Blood Pressure Location Lt brachial Position Sitting Pulse 66 Pulse Source Pulse Oximeter Pulse Oximetry (%) 99 Intake Visit Reasons: PE Intake Note: Pt is here today for her PE: mammogram 09/06/22: papsmear 03/30/21(pt has her menses doesn't want pap today) : cologuard 07/28/22 Is last menstrual period known: Yes Last menstrual period: 07/19/23 Allergies No Known Allergies Allergy (Verified 07/26/23 08:34) Medication List - Last Reconciled 07/26/23 by Gladis Cho MD amlodipine 5 mg PO QPM calcium carbonate (Calcium 500) 500 mg PO BID cholecalciferol (vitamin D3) 25 mcg PO DAILY losartan-hydrochlorothiazide 100-25 mg 1 tab PO DAILY Synthroid (levothyroxine) 175 mcg PO DAILY NS Tobacco use date assessed: 07/26/23 Dental Screening Dental Screen Date: 07/26/23 Did you have a dental visit in the last 12 months?: Yes Did you have a dental problem in the last 6 months where you did not have access to dental care?: No Was dental information given to patient?: Patient has dentist HPI PE HPI Details 52-year-old lady with hypertension, and history of Graves disease status post to thyroidectomy with subsequent hypothyroidism, and incidentally 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 She is up-to-date with her screening mammogram, goes to [facility], last done 09/06/2022 with benign findings. She had her last Pap smear in 2020, currently on her menstrual cycle does not want to get it done today. She is up-to-date with her colon cancer screening, had a Cologuard test done 07/28/2022 with negative result. Blood pressure today is within normal limits. She was previously seen by Dr. Louis and Dr. Herman, now is currently being seen at [facility] endocrine, last seen 07/22/2023 . She had an ultrasound of the neck 03/04/2023, which showed a questionable residual thyroid tissue measuring approximately 8 cm, recommended to go to [place] to get biopsy, on previous thyroid ultrasound it measured at 8 mm. Patient then sought a 2nd opinion prior to proceeding with recommendation and is now being seen at [facility]. Patient states that they ordered labs to check her thyroglobulin tumor markers and thyroid level and to repeat another ultrasound of the neck. She has been compliant with taking her Synthroid, takes it 1st thing in the morning before breakfast. Repeat TFT done at [facility] 07/22/2023 showed TSH at 2.12, free T4 1.62 and free T3 at 2.3 all within normal limit. She states that she has been feeling well, no fatigue, able to maintain her weight, exercises regularly She just started again having her period 2 days ago, prior to that her last period was in October of 2022. Denies any mood swings or vasomotor symptoms. [facility] Medical History (Updated 07/26/23 @ 09:11 by Gladis Cho MD) History of vitamin D deficiency History of Graves' disease History of thyroid cancer Hypothyroidism Colon cancer screening Granuloma annulare Essential hypertension Surgical History Hx of total thyroidectomy Family History Father Arthritis Thyroid disease Psoriasis Mental health disorder Mother Viral cardiomyopathy Brother Coronary artery disease Paternal Grandmother Lung cancer Maternal Uncle Lung cancer Sister No problems noted. Paternal Uncle Lung cancer Son No problems noted. Daughter No problems noted. Social History Household Members: Spouse Housing: House Alcohol intake: current Alcohol intake frequency: holidays/special occasions only Patient Tobacco Use Status: Former Tobacco user Years Smoked: 15 yrs e-Cigarette/Vaping Use: Never Used Current occupational status: employed Cognitive needs: No Hearing needs: No Vision needs: Yes Female Reproductive History Menstrual Date of last menstrual period: 07/19/23 Questionnaire PHQ-9 Over the last 2 weeks, how often have you been bothered by any of the following problems? 1. Little interest or pleasure in doing things: not at all 2. Feeling down, depressed, or hopeless: not at all 3. Trouble falling or staying asleep, or sleeping too much: several days 4. Feeling tired or having little energy: several days 5. Poor appetite or overeating: not at all 6. Feeling bad about yourself - or that you are a failure or have let yourself or your family down: not at all 7. Trouble concentrating on things, such as reading the newspaper or watching television: several days 8. Moving or speaking so slowly that other people could have noticed. Or the opposite - being so fidgety or restless that you have been moving around a lot more than usual: not at all 9. Thoughts that you would be better off or of hurting yourself in some way: not at all Total score: 3 Depression Screening Interpretation: Negative Depression Screening Done: Yes [id number] - PHQ-9 Billing: Yes Source: Developed by Drs. South Ibarra, Mary eLw, Aman Castro and colleagues, with an educational lalita from [employer]. Thrive Questionnaire Date Thrive assessed: 07/16/22 I am a: Patient What is your living situation today?: I have a steady place to live Within the past 12 months, did the food you bought not last and you didn't have the money to get more?: Never true Within the past 12 months, did you worry whether your food would run out before you got money to buy more?: Never true Do you have trouble paying for medicines?: No Do you have trouble getting transportation to medical appointments?: No Do you have trouble paying your heating and electricity bill?: No Do you have trouble taking care of your child, family member or friend?: No Do you have trouble with day-to-day activities such as bathing, preparing meals, shopping, managing finances, etc.?: No Are you currently unemployed and looking for a job?: No Are you interested in more education?: No THRIVE Score: 0 AUDIT C Alcohol Use Questionnaire (AUDIT-C) 1. How often do you have a drink containing alcohol?: 2-3 times a week 2. How many drinks containing alcohol do you have on a typical day when you are drinking?: 1 or 2 3. How often do you have six or more drinks on one occasion?: Never Total Score: 3 ARIANNA-7 AMB Questionnaire ARIANNA-7 Date ARIANNA - 7 assessed: 07/16/22 Feeling nervous, anxious, or on edge: 0 = Not at all Not being able to stop or control worryin = Not at all Worrying too much about different things: 0 = Not at all Trouble relaxin = Not at all Being so restless that it is hard to sit still: 0 = Not at all Becoming easily annoyed or irritable: 0 = Not at all Feeling afraid as if something awful might happen: 0 = Not at all Total ARIANNA-7 score (0-4 normal; 5-9 mild; 10-14 moderate; 15-21 severe): 0 Source: Developed by Drs. South Ibarra, Mary Lew, Aman Castro and colleagues, with an educational lalita from [employer]. ARIANNA-7 Assessment Billing ARIANNA-7 Assessment Tool: ARIANNA-7 Assessment 13656 Review of Systems Const Denies body aches, Denies fatigue, Denies headache(s) and Denies malaise Eyes Details: goes to [facility] , wears bifocals Reports blurry vision ENT Denies dizziness, Denies headache(s) and Denies disequilibrium Card Denies chest pain, Denies rapid heart rate, Denies irregular heart rhythm, Denies lightheadedness and Denies dyspnea Resp Denies cough and Denies dyspnea GI Reports no additional complaints Reports no additional complaints and Reports as per HPI Musc Details: occcasional pain and stiffness at base of thumbs bilaterally Denies myalgias, Denies muscle cramps, Denies numbness and Denies tingling Skin/Breast Denies breast swelling, Denies breast skin changes, Denies breast pain, Denies breast mass and Denies rash Neuro Denies dizziness, Denies headache(s), Denies numbness, Denies tingling and Denies disequilibrium Psych Reports no additional complaints Endo Denies cold intolerance, Denies fatigue and Denies heat intolerance Bg/Lymph Reports no additional complaints Aller/Immun Reports no additional complaints Physical exam (Primary Care) Vital Signs: Last Vital Signs Pulse 66 07/26/23 08:08 BP 138/70 07/26/23 08:08 Pulse Ox 99 07/26/23 08:08 BMI result Body Mass Index 23.4 Tobacco/Smoking Status: Tobacco use Status Tobacco use date assessed 07/26/23 07/26/23 08:12 Patient Tobacco Use Status Former Tobacco user 07/26/23 08:12 e-Cigarette/Vaping Use Never Used 07/26/23 08:12 PHQ-9: PHQ-9 Score PHQ-9: Total score 3 07/26/23 09:11 Depression Screening Interpretation: Negative Thrive Assessment: Date of Thrive Assessment Date Thrive assessed 07/16/22 07/26/23 08:12 Const General: comfortable, no acute distress and alert Nutritional Appearance: average body habitus Orientation/consciousness: patient oriented x3 [facility] General nose exam: Normal external nose present and No nasal discharge present Face and sinus: Yes face symmetric Mouth: Normal oral and palatal mucosa present and moist mucous membranes Eyes General: appearance normal, both eyes and all related structures Neck Neck: Yes full ROM, Yes no lymphadenopathy and Yes supple Chest Chest palpation & inspection: normal inspection of the chest Breast/axilla inspection: normal inspection of the breasts Breast/axilla palpation: normal palpation of the breasts Resp Effort & Inspection: normal respiratory effort and able to speak in complete sentences Auscultation: clear to auscultation bilaterally Cardio Other: S1-S2 present regular rate and rhythm, no murmurs appreciated Bruits: no abdominal aortic bruits GI Inspection: Yes normal to inspection Palpation (GI): No Abdominal aortic bruit present, Soft to palpation, nontender, no guarding and no masses Auscultation: normal bowel sounds General: Yes no CVA tenderness and Yes deferred (Currently on her menstrual cycle) Back/Spine/Pelvis Back: no CVA tenderness and No back tenderness Cervical Spine: cervical ROM normal Thoracic/Lumbar Spine: thoracic and lumbar spine normal to inspection Skin General skin exam: no rashes or lesions noted Neuro General: patient oriented x3, gait normal, moves all extremities, Normal light touch and pain sensation, no focal motor deficits and CN's II-XI intact bilaterally Extrem General: Yes full ROM, Yes no joint enlargement, Yes no pedal edema, Yes no calf tenderness and Yes normal gait Psych Appearance: grossly normal and well kempt Mental Status: mental status grossly normal Speech and movement: Normal speech and movement present Affect: normal affect Attitude: cooperative Thought process: Normal thought process present Thought content: Normal thought content present Assessment and Plan Assessment & Plan (1) Annual visit for general adult medical examination with abnormal findings: Code(s): Z00.01 - Encounter for general adult medical examination with abnormal findings Plan: Will check appropriate labs. Recommended dental visit every 6 months and regular eye exams, at least every 2 years. Take adequate calcium in diet and vitamin-D 3 at 2000 IU per cap once a day, in addition to weight-bearing exercises to help maintain good muscle tone and weight control. Instructed to do self-breast exam, and continue to get yearly mammogram, due again this August, gets it done at [facility]. Last Pap smear was done in 2020 with benign findings, will repeat next year. Cologuard testing done a year ago was negative. She is up-to-date with all her vaccinations, but did not get a COVID booster, reminded patient that she is eligible not to get his Shingrix vaccine prevention of herpes zoster (2) Essential hypertension: Comment: superimposed with white coat hypertension as seen on 24 hour A[address] done by Dr. Juarez, placed on losartan and low-salt diet. Code(s): I10 - Essential (primary) hypertension Plan: Continue with amlodipine and losartan-HCTZ at the same dose, reinforced importance of following a low-salt diet and getting regular exercise. Basic metabolic panel ordered today (3) Granuloma annulare: Comment: seen by GINA quinteros, lesions on elbow and plantar aspect of left foot Code(s): L92.0 - Granuloma annulare Plan: Followed by [facility] (4) History of thyroid cancer: Comment: Papillary microcarcinoma, stage 1, per SNEHAL has low risk of recurrent Code(s): Z85.850 - Personal history of malignant neoplasm of thyroid Plan: Currently being followed at [facility] with repeat thyroid ultrasound ordered, TFTs done at [facility] showed results within normal , patient currently symptoms (5) Hypothyroidism: Code(s): E03.9 - Hypothyroidism, unspecified Qualifiers: Hypothyroidism type: postoperative Qualified Code(s): E89.0 - Postprocedural hypothyroidism Plan: Continue on Synthroid 175 mcg taken once a day in a.m. an hour before breakfast, currently being followed at [facility] endocrine clinic Orders: Orders Alanine Aminotransferase 07/26/23 E03.9 - Hypothyroidism, unspecified, I10 - Essential (primary) hypertension, L92.0 - Granuloma annulare, Z85.850 - Personal history of malignant neoplasm of thyroid Hemoglobin A1c 07/26/23 E03.9 - Hypothyroidism, unspecified, I10 - Essential (primary) hypertension, L92.0 - Granuloma annulare, Z85.850 - Personal history of malignant neoplasm of thyroid Lipid Panel 07/26/23 E03.9 - Hypothyroidism, unspecified, I10 - Essential (primary) hypertension, L92.0 - Granuloma annulare, Z85.850 - Personal history of malignant neoplasm of thyroid Aspartate Amino Transferase 07/26/23 E03.9 - Hypothyroidism, unspecified, I10 - Essential (primary) hypertension, L92.0 - Granuloma annulare, Z85.850 - Personal history of malignant neoplasm of thyroid Basic Metabolic Panel Fasting 07/26/23 E03.9 - Hypothyroidism, unspecified, I10 - Essential (primary) hypertension, L92.0 - Granuloma annulare, Z85.850 - Personal history of malignant neoplasm of thyroid Vitamin D 25-OH Total 07/26/23 E03.9 - Hypothyroidism, unspecified, I10 - Essential (primary) hypertension, L92.0 - Granuloma annulare, Z85.850 - Personal history of malignant neoplasm of thyroid Hemoglobin and Hematocrit 07/26/23 E03.9 - Hypothyroidism, unspecified, I10 - Essential (primary) hypertension, L92.0 - Granuloma annulare, Z85.850 - Personal history of malignant neoplasm of thyroid Coding Level of Care Code Est Pt Prev Care 40-64y(14741) Diagnoses Annual visit for general adult medical examination with abnormal findings Z00.01 Essential hypertension I10 Granuloma annulare L92.0 History of thyroid cancer Z85.850 Postoperative hypothyroidism E89.0 Hypothyroidism type: postoperative Additional Codes ARIANNA-7 Assessment Billing - ARIANNA-7 Assessment Tool: ARIANNA-7 Assessment 08955 ([id number])
== END 2023-07-26 08:56 | disposition home or self-care (01) ==
PROVIDERS: Visit Provider Internal Medicine
DX: Z00.01 Encounter for general adult medical examination with abnormal findings (principal); I10 Essential (primary) hypertension; L92.0 Granuloma annulare; Z85.850 Personal history of malignant neoplasm of thyroid; E89.0 Postprocedural hypothyroidism
CPT/HCPCS: 99396

== ENCOUNTER 2023-07-26 08:57 | Outpatient (REF) | payer OTHER, SELFPAY ==
[2023-07-26 11:33] LABS: Hematocrit 39.6 % (37.0-47.0); Hemoglobin 13.7 g/dl (12.0-16.0)
[2023-07-26 11:50] LABS: Estimated Average Glucose 97 mg/dL
[2023-07-26 12:05] LABS: Alanine Aminotransferase 17 U/L (0-31); Anion Gap 12 (12-20); Aspartate Amino Transferase 17 U/L (5-31); Blood Urea Nitrogen 11 mg/dL (9-16); Calcium 9.4 mg/dL (8.4-10.2); Carbon Dioxide 29 mmol/L (22-29); Chloride 103 mmol/L (96-108); Cholesterol 201 mg/dL (<200); Estimated Glomerular Filt Rate > 60; Glucose Fasting 118 mg/dL (60-99); HDL Cholesterol 76 mg/dL (>40); LDL Cholesterol Calculated 110 mg/dL (<100); Potassium 3.2 mmol/L (3.3-5.1); Sodium 141 mmol/L (135-145); Triglycerides 78 mg/dL (<150)
== END 2023-07-26 08:58 | disposition home or self-care (01) ==
LOC: HO.HMGCLDS 08:57
PROVIDERS: PCP Internal Medicine; Visit Provider Internal Medicine
DX: I10 Essential (primary) hypertension (principal); L92.0 Granuloma annulare; E03.9 Hypothyroidism, unspecified; Z85.850 Personal history of malignant neoplasm of thyroid
CPT/HCPCS: 36415; 80048; 80061; 82306; 83036; 84450; 84460; 85014; 85018

== ENCOUNTER 2023-08-02 06:07 | Outpatient (REF) | payer OTHER, SELFPAY ==
[2023-08-02 12:06] LABS: Potassium 3.5 mmol/L (3.3-5.1)
== END 2023-08-02 06:08 | disposition home or self-care (01) ==
LOC: HO.HMGCLDS 06:07
PROVIDERS: PCP Internal Medicine; Visit Provider Internal Medicine
DX: E87.6 Hypokalemia (principal)
CPT/HCPCS: 36415; 84132

== ENCOUNTER 2024-11-15 06:01 | Outpatient (REF) | payer OTHER, SELFPAY ==
--- OUTSIDE RECORDS SUMMARY | 2024-11-15 06:03 | XMS_ITS | Patient Health Record ---
Author Organization [facility] Address [address] [place] [address] Support Name Relationship Address Phone MARV YOUNG Guarantor Unknown [phone] Reason For Referral No Information Medications Medication SIG (Take, Route, Fr equency, Duration) Notes Start Date End Date Status Calcium 600MG 1 ORAL daily; Duration: -3 Porfirio-MJ 1 Active Multivitamins 1 ORAL daily; Duration: -3 Porfirio-MJ 1 Active Vitamin D 1,000 IU'S 1 ORAL daily; Duration: -3 Porfirio-MJ Active Vitamin C 1 ORAL daily; Duration: -3 Porfirio-MJ 03/20/2011 Active Problems Problem Type SNOMED Code ICD Code Onset Dates Problem Status W/U Status Risk Notes Problem Gynecological examination normal ([id number]) Routine gynecological examination (V72.31) Active confirmed Diag Problem Counseling ([id number]) Counseling NOS (V65.40) Active confirmed Diag Problem Screening for malignant neoplasm of cervix ([id number]) Screening for malignant neoplasm of the cervix (V76.2) Active confirmed Diag Plan Of Treatment No Information Insurance Providers Payer Name Payer Address Payer Phone Subscriber Number Group Number Insured Name Patient Relationship to Insured Coverage Start Date Coverage End Date [facility] [address] [address] [place], [place] [id number] QUIN [id number] Spouse - patient is the spouse of the insured 1
[2024-11-15 10:28] LABS: Alanine Aminotransferase 22 U/L (0-31); Anion Gap 11 (12-20); Aspartate Amino Transferase 26 U/L (5-31); Blood Urea Nitrogen 11 mg/dL (9-16); Calcium 8.8 mg/dL (8.4-10.2); Carbon Dioxide 28 mmol/L (22-29); Chloride 103 mmol/L (96-108); Cholesterol 186 mg/dL (<200); Estimated Glomerular Filt Rate > 60; HDL Cholesterol 64 mg/dL (>40); Potassium 3.6 mmol/L (3.3-5.1); Sodium 138 mmol/L (135-145); Triglycerides 57 mg/dL (<150)
[2024-11-15 10:53] LABS: Thyroid Stimulating Hormone 0.75 uIU/mL (0.32-4.0)
[2024-11-15 11:24] LABS: Free T4 (Free Thyroxine) 1.28 ng/dL (0.71-1.85)
== END 2024-11-15 06:02 | disposition home or self-care (01) ==
LOC: HO.HMGCLDS 06:01
PROVIDERS: PCP Internal Medicine; Visit Provider Internal Medicine
DX: Z78.0 Asymptomatic menopausal state (principal); Z85.850 Personal history of malignant neoplasm of thyroid; E89.0 Postprocedural hypothyroidism; I10 Essential (primary) hypertension
CPT/HCPCS: 36415; 80048; 80061; 82306; 84439; 84443; 84450; 84460

== ENCOUNTER 2024-11-20 09:57 | Outpatient (AMB) | payer OTHER, SELFPAY ==
--- NOTE | 2024-11-20 10:08 | MHC.PC.OV ---
Vital Signs 11/20/24 10:09 Height 5 ft 8 in Weight 151 lb BMI 23.0 BP 124/82 Blood Pressure Location Lt brachial Position Sitting Respiration 15 Pulse 71 Pulse Source Pulse Oximeter Temp 98.1 F Temp Source Oral Pulse Oximetry (%) 99 Oxygen Delivery Method Room Air Intake Visit Reasons: Annual PE Intake Note: Pt is here today for her PE: Last mammogram 09/13/24, papsmear 03/30/21, cologuard 07/28/22 Is last menstrual period known: Yes Last menstrual period: 11/16/24 (spotting) Allergies No Known Allergies Allergy (Verified 11/20/24 10:25) Medication List - Last Reconciled 11/20/24 by Gladis Cho MD amlodipine 5 mg PO QPM calcium carbonate (Calcium 500) 500 mg PO BID cholecalciferol (vitamin D3) 25 mcg PO DAILY losartan-hydrochlorothiazide 100-25 mg 1 tab PO DAILY Synthroid (levothyroxine) 175 mcg PO DAILY NS Tobacco use date assessed: 11/20/24 Dental Screening Dental Screen Date: 11/20/24 Did you have a dental visit in the last 12 months?: Yes Did you have a dental problem in the last 6 months where you did not have access to dental care?: No Was dental information given to patient?: Patient has dentist HPI Annual PE HPI Details 53 year-old lady with hypertension, and history of Graves disease s/p total thyroidectomy with subsequent hypothyroidism, and 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 She is up-to-date with her screening mammogram, goes to [facility], last done 09/13/2024 with benign findings. She had her last Pap smear in 2020, currently on her menstrual cycle does not want to get it done today. She had a Cologuard test done 07/28/2022 with positive result. [facility] Medical History (Updated 11/20/24 @ 10:34 by Gladis Cho MD) Positive colorectal cancer screening using Cologuard test Post-surgical hypothyroidism History of vitamin D deficiency History of Graves' disease History of thyroid cancer Hypothyroidism Colon cancer screening Granuloma annulare Essential hypertension Surgical History Hx of total thyroidectomy Family History Father Arthritis Thyroid disease Psoriasis Mental health disorder Mother Viral cardiomyopathy Brother Coronary artery disease Paternal Grandmother Lung cancer Maternal Uncle Lung cancer Sister No problems noted. Paternal Uncle Lung cancer Son No problems noted. Daughter No problems noted. Social History Household Members: Spouse Housing: House Alcohol intake: current Alcohol intake frequency: holidays/special occasions only Patient Tobacco Use Status: Former Tobacco user Years Smoked: 15 yrs e-Cigarette/Vaping Use: Never Used Current occupational status: employed Cognitive needs: No Hearing needs: No Vision needs: Yes Female Reproductive History Menstrual Date of last menstrual period: 11/16/24 (spotting) Date of last pap smear: 03/30/21 Date of Mammogram: 09/13/24 Questionnaire PHQ-9 Over the last 2 weeks, how often have you been bothered by any of the following problems? 1. Little interest or pleasure in doing things: not at all 2. Feeling down, depressed, or hopeless: not at all 3. Trouble falling or staying asleep, or sleeping too much: not at all 4. Feeling tired or having little energy: not at all 5. Poor appetite or overeating: not at all 6. Feeling bad about yourself - or that you are a failure or have let yourself or your family down: not at all 7. Trouble concentrating on things, such as reading the newspaper or watching television: not at all 8. Moving or speaking so slowly that other people could have noticed. Or the opposite - being so fidgety or restless that you have been moving around a lot more than usual: not at all 9. Thoughts that you would be better off or of hurting yourself in some way: not at all Total score: 0 Depression Screening Interpretation: Negative Depression Screening Done: Yes 84162 - PHQ-9 Billing: Yes Source: Developed by Drs. South Ibarra, Mary Lew, Aman Castro and colleagues, with an educational lalita from [employer]. Thrive Questionnaire Date Thrive assessed: 11/14/24 I am a: Patient What is your living situation today?: I have a steady place to live Within the past 12 months, did the food you bought not last and you didn't have the money to get more?: Never true Within the past 12 months, did you worry whether your food would run out before you got money to buy more?: Never true Do you have trouble paying for medicines?: No Do you have trouble getting transportation to medical appointments?: No Do you have trouble paying your heating and electricity bill?: No Do you have trouble taking care of your child, family member or friend?: No Do you have trouble with day-to-day activities such as bathing, preparing meals, shopping, managing finances, etc.?: No Are you currently unemployed and looking for a job?: No Are you interested in more education?: No Please select the resources that you would like help with: None Currently or been in a relationship where the following occur: No concerns reported THRIVE Score: 0 AUDIT C Alcohol Use Questionnaire (AUDIT-C) 1. How often do you have a drink containing alcohol?: 2-3 times a week 2. How many drinks containing alcohol do you have on a typical day when you are drinking?: 1 or 2 3. How often do you have six or more drinks on one occasion?: Never Total Score: 3 ARIANNA-7 AMB Questionnaire ARIANNA-7 Date ARIANNA - 7 assessed: 11/20/24 Feeling nervous, anxious, or on edge: 0 = Not at all Not being able to stop or control worryin = Not at all Worrying too much about different things: 0 = Not at all Trouble relaxin = Not at all Being so restless that it is hard to sit still: 0 = Not at all Becoming easily annoyed or irritable: 0 = Not at all Feeling afraid as if something awful might happen: 0 = Not at all Total ARIANNA-7 score (0-4 normal; 5-9 mild; 10-14 moderate; 15-21 severe): 0 Source: Developed by Drs. South Ibarra, Mary Lew, Aman Castro and colleagues, with an educational lalita from [employer]. ARIANNA-7 Assessment Billing ARIANNA-7 Assessment Tool: ARIANNA-7 Assessment 23993 Review of Systems Const Denies body aches, Denies fatigue, Denies headache(s) and Denies malaise Eyes Details: sees [facility] , [facility] Details: dental prophylaxis q 6 months Denies dizziness, Denies headache(s) and Denies disequilibrium Card Denies chest pain, Denies rapid heart rate, Denies irregular heart rhythm, Denies lightheadedness and Denies dyspnea Resp Denies cough and Denies dyspnea GI Reports no additional complaints Reports no additional complaints and Reports as per HPI Musc Denies myalgias, Denies muscle cramps, Denies numbness and Denies tingling Skin/Breast Denies breast swelling, Denies breast skin changes, Denies breast pain, Denies breast mass and Denies rash Neuro Denies dizziness, Denies headache(s), Denies numbness, Denies tingling and Denies disequilibrium Psych Reports no additional complaints Endo Denies cold intolerance, Denies fatigue and Denies heat intolerance Bg/Lymph Reports no additional complaints Aller/Immun Reports no additional complaints Physical exam (Primary Care) Vital Signs: Last Vital Signs Temp 98.1 F 11/20/24 10:09 Pulse 71 11/20/24 10:09 Resp 15 11/20/24 10:09 BP 124/82 11/20/24 10:09 Pulse Ox 99 11/20/24 10:09 Oxygen Delivery Method Room Air 11/20/24 10:09 BMI result Body Mass Index 23.0 Tobacco/Smoking Status: Tobacco use Status Tobacco use date assessed 11/20/24 11/20/24 10:13 Patient Tobacco Use Status Former Tobacco user 11/20/24 10:13 e-Cigarette/Vaping Use Never Used 11/20/24 10:13 PHQ-9: PHQ-9 Score PHQ-9: Total score 0 11/20/24 10:37 Depression Screening Interpretation: Negative Thrive Assessment: Date of Thrive Assessment Date Thrive assessed 11/14/24 11/20/24 10:13 Currently or been in a relationship where the following occur: No concerns reported Const General: comfortable, no acute distress and alert Nutritional Appearance: average body habitus Orientation/consciousness: patient oriented x3 HENMT General nose exam: Normal external nose present and No nasal discharge present Face and sinus: Yes face symmetric Mouth: Normal oral and palatal mucosa present and moist mucous membranes Eyes General: appearance normal, both eyes and all related structures Neck Neck: Yes full ROM, Yes no lymphadenopathy and Yes supple Chest Chest palpation & inspection: normal inspection of the chest Breast/axilla inspection: normal inspection of the breasts Breast/axilla palpation: normal palpation of the breasts Resp Effort & Inspection: normal respiratory effort and able to speak in complete sentences Auscultation: clear to auscultation bilaterally Cardio Other: S1-S2 present regular rate and rhythm, no murmurs appreciated Bruits: no abdominal aortic bruits GI Inspection: Yes normal to inspection Palpation (GI): No Abdominal aortic bruit present, Soft to palpation, nontender, no guarding and no masses Auscultation: normal bowel sounds General: Yes no CVA tenderness and Yes deferred (Currently on her menstrual cycle) Back/Spine/Pelvis Back: no CVA tenderness and No back tenderness Cervical Spine: cervical ROM normal Thoracic/Lumbar Spine: thoracic and lumbar spine normal to inspection Skin General skin exam: no rashes or lesions noted Neuro General: patient oriented x3, gait normal, moves all extremities, Normal light touch and pain sensation, no focal motor deficits and CN's II-XI intact bilaterally Extrem General: Yes full ROM, Yes no joint enlargement, Yes no pedal edema, Yes no calf tenderness and Yes normal gait Psych Appearance: grossly normal and well kempt Mental Status: mental status grossly normal Speech and movement: Normal speech and movement present Affect: normal affect Results Reviewed Results Reviewed: Name: Sherlyn De La Cruz Age/Sex: 53/F : 1970 Unit#: [id number] Attend Dr: Gladis Cho MD Re11/15/24 Status: DEP REF Location: [facility] Disch: SPEC : [id number] DILSHAD: 11/15/24 STATUS: COMP REQ : [id number] RECD: 11/15/[address]: Gladis Cho MD COMP: 11/15/243 ENTERED: 11/15/[address]: ORDERED: Met Prof Fast, AST, ALT, Lipid Panel, Vitamin D 25-OH, Free T4, TSH Test Result Flag Reference Sodium 138 135-145 mmol/L Potassium 3.6 3.3-5.1 mmol/L CL 103 96-108 mmol/L CO2 28 22-29 mmol/L Gap 11 L 12-20 BUN 11 9-16 mg/dL Creat 0.66 0.5-1.4 mg/dL eGFR > 60 Chronic Kidney Disease: Estimated GFR < 60 mL/min/1.73m2 Severe Kidney Disease: Estimated GFR < 15 mL/min/1.73m2 FBS 95 60-99 mg/dL CA 8.8 # 8.4-10.2 mg/dL AST (GOT) 26 5-31 U/L ALT (GPT) 22 0-31 U/L Triglyceride 57 <150 mg/dL Desirable Triglyceride: less than 150 mg/dL Borderline High Triglyceride 150-199 mg/dL High Triglyceride: 200-499 mg/dL Very High Triglyceride: greater than or equal to 5OO mg/dL Cholesterol 186 <200 mg/dL Desirable Cholesterol: less than 200 mg/dL Borderline High Cholesterol: 200-239 mg/dL High Cholesterol: greater than 239 mg/dL LDL Calculated 111 H <100 mg/dL Desirable LDL: less than 100 mg/dL Near Optimal/Above Optimal LDL: 110-129 mg/dL Borderline High LDL: 130-159 mg/dL High LDL: 160-189 mg/dL Very High LDL: greater than or equal to 190 mg/dL HDL 64 >40 mg/dL Desirable HDL: greater than 40 mg/dL Note: This HDL assay may give artificially low results in patients with liver disease. Vitamin D 25-OH 60.2 >30 ng/mL Health Based Reference Values* < 20 ng/mL Deficient 20-30 ng/mL Insufficient > 30 ng/mL Sufficient *Lori BEAL. N Engl J Med. 2007;357:266-280 There is no well-established upper level of normal vitamin D levels. Some laboratories use 50 ng/mL as an upper limit of normal. However, toxicity is patient-dependent and may occur at any level. Careful correlation with the patient's presentation is necessary and, if there is concern for vitamin D toxicity, treatment should be considered irrespective of the serum level. Care must be taken in interpreting Vitamin D results from different laboratories and methodologies. Published data demonstrated that results from patients undergoing hemodialysis may show a negative bias when tested with various automated 25-OH vitamin D assays when compared to LC-MS/MS. When testing samples from patients whose predominant form of Vitamin D is Vitamin D2, such as patients receiving Vitamin D2 supplementation, results that are subtherapeutic should be confirmed with another method such as LC-MS/MS. Free T4 1.28 0.71-1.85 ng/dL TSH 3rd Gen. 0.75 0.32-4.0 uIU/mL TSH 3rd Generation ([facility]) Coding Level of Care Code Est Pt Prev Care 40-64y(58579) Diagnoses Annual visit for general adult medical examination with abnormal findings Z00.01 Positive colorectal cancer screening using Cologuard test R19.5 Essential hypertension I10 Post-surgical hypothyroidism E89.0 Granuloma annulare L92.0 Advanced directives, counseling/discussion Z71.89 Additional Codes PHQ-9 - 97936 - PHQ-9 Billing: Yes ([id number]) ARIANNA-7 Assessment Billing - ARIANNA-7 Assessment Tool: ARIANNA-7 Assessment 82748 ([id number]) Assessment & Plan Assessment & Plan (1) Annual visit for general adult medical examination with abnormal findings: Code(s): Z00.01 - Encounter for general adult medical examination with abnormal findings Plan: Fasting lab results reviewed with patient Recommended dental visit every 6 months and regular eye exams, at least every 2 years. Take adequate calcium in diet and vitamin-D 3 at 2000 IU per cap once a day, in addition to weight-bearing exercises to help maintain good muscle tone and weight control. Instructed to do self-breast exam, and continue to get yearly mammogram,. Last Pap smear was done in 2020 which came back with negative findings and will will do a a cervical cancer screening on next year's visit referred to GI Clinic for colon cancer screening, had a positive Cologuard testing. (2) Positive colorectal cancer screening using Cologuard test: Code(s): R19.5 - Other fecal abnormalities Category: Medical Plan: Referred to GI Clinic for further evaluation (3) Essential hypertension: Comment: superimposed with white coat hypertension as seen on [address] done by Dr. Juarez, placed on losartan and low-salt diet. Code(s): I10 - Essential (primary) hypertension Category: Medical Plan: Blood pressure at goal of less than 130/80. Continue with losartan HCTZ 100-25 mg 1 tablet daily and amlodipine 5 mg in the evening. Reinforced importance of following a low sodium diet, getting regular exercise, and lowering stress levels. (4) Post-surgical hypothyroidism: Code(s): E89.0 - Postprocedural hypothyroidism Category: Medical Plan: Thyroid levels are within normal limits, continued on Synthroid 175 mcg daily (5) Granuloma annulare: Comment: seen by [facility], lesions on elbow and plantar aspect of left foot Code(s): L92.0 - Granuloma annulare Category: Medical Plan: Followed by [facility] (6) Advanced directives, counseling/discussion: Code(s): Z71.89 - Other specified counseling Plan: Initiated the conversation about Advanced Directives. Advanced Directives help patients prepare for current and future decisions about their medical treatment and place of care. Discussed with patient that it is a process where a patients current condition and prognosis are reviewed, their wishes for information regarding their illness are elicited, and likely medical dilemmas are presented and options discussed. Healthcare proxy form completed today. The form can be amended as needed, reviewed yearly and make changes as needed Orders: Referrals Gastroenterology Referral R19.5 - Other fecal abnormalities
[2024-11-20 10:09] VITALS: BP 124/82; PULSE 71; RESP 15; TEMP 36.7; O2SAT 99; BMI 23.0
--- OUTSIDE RECORDS SUMMARY | 2024-11-20 10:42 | XMS_ITS | Patient Health Record ---
[facility] Address [address] [place] [address] Support Name Relationship Address Phone MARV YOUNG Guarantor Unknown [phone] Reason For Referral No Information Medications Medication [...] Status Risk Notes Problem Gynecological examination normal ([id number]) Routine gynecological examination (V72.31) Active confirmed Diag Problem Counseling ([id number]) Counseling NOS (V65.40) Active confirmed Diag Problem Screening for malignant neoplasm of cervix ([id number]) Screening for malignant neoplasm of the cervix (V76.2) Active confirmed Diag Plan Of Treatment No Information Insurance Providers Payer Name Payer Address Payer Phone Subscriber Number Group Number Insured Name Patient Relationship to Insured Coverage Start Date Coverage End Date [facility] [address] [address] [place], [place] [id number] QUIN YOUNG Spouse - patient is the spouse of the insured 1
== END 2024-11-20 10:47 | disposition home or self-care (01) ==
LOC: HO.HMCC 09:58
PROVIDERS: PCP Internal Medicine; Visit Provider Internal Medicine
DX: Z00.01 Encounter for general adult medical examination with abnormal findings (principal); R19.5 Other fecal abnormalities; I10 Essential (primary) hypertension; E89.0 Postprocedural hypothyroidism; L92.0 Granuloma annulare; Z71.89 Other specified counseling

== ENCOUNTER → 2024-11-20 09:57 | Outpatient (BNVA) | payer OTHER, SELFPAY | PROVIDERS: PCP Internal Medicine; Visit Provider Internal Medicine | DX: Z00.01 Encounter for general adult medical examination with abnormal findings (principal); I10 Essential (primary) hypertension; E89.0 Postprocedural hypothyroidism; R19.5 Other fecal abnormalities; L92.0 Granuloma annulare; Z71.89 Other specified counseling | CPT/HCPCS: 96127 ==

== ENCOUNTER 2025-03-27 14:57 | Outpatient (AMB) | payer OTHER, SELFPAY ==
--- NOTE | 2025-03-27 15:12 | MHC.OFFVIS ---
Vital Signs 03/27/25 15:13 Height 5 ft 8 in Weight 145 lb 8.081 oz BMI 22.1 BP 160/76 H Blood Pressure Location Lt brachial Position Sitting Pulse 80 Intake Visit Reasons: colo screen Intake Note: Sherlyn presents in the office as a colonoscopy screening. CC: States her cologuard came back positive. Character Actress Required: No Allergies No Known Allergies Allergy (Verified 11/20/24 10:25) Medication List - Last Reconciled 03/27/25 by Mel Barron CNP amlodipine 5 mg PO QPM calcium carbonate (Calcium 500) 500 mg PO BID cholecalciferol (vitamin D3) 25 mcg PO DAILY guar gum 1 tbsp PO DAILY losartan-hydrochlorothiazide 100-25 mg 1 tab PO DAILY multivitamin 1 tab PO QAM Synthroid (levothyroxine) 175 mcg PO DAILY NS HPI HPI colo screen: Details: Patient is a 54-year-old female with PMH of post- surgical hypothyroidism, hypertension. Referred by PCP for further evaluation of positive Cologuard positive Cologuard test ( 07/22/2022) without subsequent colonoscopy; evaluation and coordination for colorectal cancer screening. Sherlyn denies current or recent abdominal pain, blood in stool, nausea, vomiting, changes in appetite, heartburn, or dysphagia. Stools are described as soft and well-formed, occurring daily or every other day, with regular use of a fiber supplement. No recent weight change is reported. Patient has a remote history of constipation symptoms, improved with daily fiber. No current or recent GI bleeding symptoms. Family history notable for Crohn?s disease in two first-degree relatives (, daughter) but no colon or gastric cancer in immediate family. Remote history of Graves disease and thyroidectomy with incidental thyroid cancer; currently euthyroid on replacement therapy. Patient denies: fever/chills, n/v, appetite changes, pyrosis, regurgitation,dysphasia, unintentional wt loss, ab pain or melena/hematochezia. Social hx: -ETOH use Vodka tonic, ~2 drinks/session, ~3 days/week -consumes marijuana daily, denies other recreational drug use -former smoker, cessation 2018 - family hx as below -denies significant cardiopulmonary history -tolerated anesthesia in the past without difficulty. [facility] Medical History (Updated 11/20/24 @ 10:34 by Gladis Cho MD) Positive colorectal cancer screening using Cologuard test Post-surgical hypothyroidism History of vitamin D deficiency History of Graves' disease History of thyroid cancer Hypothyroidism Colon cancer screening Granuloma annulare Essential hypertension Surgical History Hx of total thyroidectomy Family History Father Arthritis Thyroid disease Psoriasis Mental health disorder Mother Viral cardiomyopathy Brother Coronary artery disease Paternal Grandmother Lung cancer Maternal Uncle Lung cancer Sister No problems noted. Paternal Uncle Lung cancer Son No problems noted. Daughter No problems noted. Social History Household Members: Spouse Housing: House Alcohol intake: current Alcohol intake frequency: holidays/special occasions only Patient Tobacco Use Status: Former Tobacco user Years Smoked: 15 yrs e-Cigarette/Vaping Use: Never Used Current occupational status: employed Cognitive needs: No Hearing needs: No Vision needs: Yes Review of Systems Const Reports as per HPI ENT Reports as per HPI Card Reports as per HPI Resp Reports as per HPI GI Reports as per HPI Reports as per HPI Physical Exam Vital Signs: Last Vital Signs Pulse 80 03/27/25 15:13 BP 160/76 H 03/27/25 15:13 BMI result Body Mass Index 22.1 Const General: healthy appearing, no acute distress and well developed Nutritional Appearance: average body habitus Orientation/consciousness: patient oriented x3 HEENT Head: Yes normal to inspection, Yes normocephalic and Yes atraumatic Face and sinus: Yes normal facial exam Eyes General: appearance normal, both eyes and all related structures Neck Neck: Yes normal visual inspection Resp Effort & Inspection: normal respiratory effort, able to speak in complete sentences, no tracheal deviation and symmetric chest movement Cardio Jugular venous distension: no JVD Neuro General: patient oriented x3 Gait exam (Neuro): Normal gait present Psych Appearance: grossly normal Mental Status: mental status grossly normal Speech and movement: Normal speech and movement present Affect: normal affect Attitude: cooperative Thought process: Normal thought process present Thought content: Normal thought content present Insight: Good insight present (Psych) Judgement: Good judgement present (Psych) Assessment & Plan Assessment & Plan (1) Positive colorectal cancer screening using Cologuard test: Code(s): R19.5 - Other fecal abnormalities Category: Medical Plan: Positive non-invasive colorectal cancer screening test requires diagnostic colonoscopy to evaluate for neoplasia, advanced adenoma, or alternative sources of occult blood. Additional Testing: - Scheduling of urgent colonoscopy per GI guidelines. - No additional pre-procedure labs indicated at this time given absence of symptoms and normal recent routine labs, including normal kidney, liver, and anemia screening in July 2023 and November 2024. Medication Management: - Prescribed colonoscopy prep (Miralax split dose prep and laxative tablets); provided instructions for clear liquid diet and specific avoidance of red/blue/purple liquids prior to procedure. - Continue current regular meds, taking morning doses at least 4 hours before procedure. Lifestyle Recommendations: - Maintain current diet; begin clear liquid diet day prior to procedure as instructed. - Arrange for reliable transportation on procedure day (sedation). - Continue daily fiber until prep; withhold morning meds and food per endoscopy prep protocol. Follow-Up: - Patient to undergo colonoscopy as soon as scheduling allows (preferably urgent given timing since positive Cologuard). - Outpatient GI follow-up visit to review colonoscopy results and discuss further screening or surveillance based on findings. Plan Follow-up after endoscopy or sooner as needed Time: I spent a total of 30 minutes on the date of encounter which includes: Preparing to see the patient (reviewed previous documentation, test results and medical history) Performing a medically appropriate exam and/or evaluation Ordering medications, tests, and procedures Documenting clinical information in the health record Orders: Referrals GI Procedure Notification R19.5 - Other fecal abnormalities Medications: New bisacodyl take four tablets once day of colonoscopy prep 20 mg (4 x 5 mg) PO ONCE 4 tabs 0RF polyethylene glycol 3350 (Miralax) per colonoscopy prep instructions 238 grams PO ONCE 238 grams 0RF Coding Level of Care Code New Pt New Pt Level 3 (31153) Patient Type New Diagnoses Positive colorectal cancer screening using Cologuard test R19.5
[2025-03-27 15:13] VITALS: BP 160/76; PULSE 80; BMI 22.1
--- OUTSIDE RECORDS SUMMARY | 2025-03-27 18:18 | XMS_ITS | Patient Health Record ---
Author Organization [facility] Address [address] [place] [address] Support Name Relationship Address Phone MARV YOUNG Guarantor Unknown [phone] Reason For Referral No Information Medications Medication [...] Status Risk Notes Problem Gynecological examination normal (301856238396842) Routine gynecological examination (V72.31) Active confirmed Diag Problem Counseling (973873008) Counseling NOS (V65.40) Active confirmed Diag Problem Screening for malignant neoplasm of cervix (951954589) Screening for malignant neoplasm of the cervix (V76.2) Active confirmed Diag Plan Of Treatment No Information Insurance Providers Payer Name Payer Address Payer Phone Subscriber Number Group Number Insured Name Patient Relationship to Insured Coverage Start Date Coverage End Date [facility] [address] [address] [place], [place] [id number] QUIN [id number] Spouse - patient is the spouse of the insured 1
== END 2025-03-27 16:10 | disposition home or self-care (01) ==
LOC: HO.HGI 14:58
PROVIDERS: PCP Internal Medicine; Visit Provider Nurse Practitioner Family
DX: R19.5 Other fecal abnormalities (principal)
CPT/HCPCS: 99203